=== PATIENT | female | born 1940 | race Two or more races ===

== ENCOUNTER 2024-03-15 08:33 | Emergency (ER) | payer MEDICAID, OTHER ==
[~2024-03-15] VITALS: Ht 157.5 cm; Wt 52.8 kg
[2024-03-15 09:08] VITALS: BP 112/75; PULSE 84; RESP 17; TEMP 98.1; O2SAT 98
--- NOTE | 2024-03-15 09:10 | ED.PDOC ---
Musculoskeletal HPI Comments 84Y F presents to ED for chief complaint rt foot/toe pain [id number]. Pt reports trauma to rt foot 2 weeks ago but states she has felt rt toe numbness for 6months. Pt states her toes feel stiff. Pt denies chest pain, SOB, abd pain, and n/v/d. No other symptoms reported. Chief Complaint: Lower Extremity Time Seen by MD: 08:50 Reviewed Notes: Nurses Notes, Medications, Allergies Allergies: Coded Allergies: No Known Drug Allergy (Verified Allergy, Unknown, 03/15/24) Information Source: Patient Mode of Arrival: Ambulatory Location: Right Extremity Location: Toe 3 Timing: Months Severity: Mild Able to Move Extremity: Yes Bear Weight: Limited Pain: Mild Mechanism: Unknown Circumstances: Unknown Symptoms: Pain Associated signs and symptoms: Other Past Medical History PAST MEDICAL HISTORY: Denies Surgical History: Denies all surgeries ATTENDANT HONOR BAR History: No Pertinent ATTENDANT HONOR BAR History Family History Family History: Unknown Social History Smoker: Non-Smoker Alcohol: Denies ETOH Use Drugs: Denies Drug Use Lives In: Home Constitutional: denies: chills, diaphoresis, fatigue, fever, malaise, sweats, weakness, others EENTM: denies: blurred vision, double vision, ear bleeding, ear discharge, ear drainage, ear pain, ear ringing, eye pain, eye redness, hearing loss, mouth pain, mouth swelling, nasal discharge, nose bleeding, nose congestion, nose pain, photophobia, tearing, throat pain, throat swelling, voice changes, others Respiratory: denies: cough, hemoptysis, orthopnea, SOB at rest, shortness of breath, SOB with excertion, stridor, wheezing, others Cardiovascular: denies: chest pain, dizzy spells, diaphoresis, Dyspnea on exertion, edema, irregular heart beat, left arm pain, lightheadedness, palpitations, PND, syncope, others Gastrointestinal: denies: abdomen distended, abdominal pain, blood streaked bowels, constipated, diarrhea, dysphagia, difficulty swallowing, hematemesis, melena, nausea, poor appetite, poor fluid intake, rectal bleeding, rectal pain, vomiting, others Genitourinary: denies: abnormal vagina bleeding, burning, dyspareunia, dysuria, flank pain, frequency, hematuria, incontinence, pain, , vagina discharge, urgency, others Neurological: reports: numbness (rt toes); denies: dizziness, fainting, headache, left sided numbness, left sided weakness, paresthesia, pre-existing deficit, right sided numbness, right sided weakness, seizure, speech problems, t ingling, tremors, weakness, others Musculoskeletal: reports: others (rt foot toe 3 pain); denies: back pain, gout, joint pain, joint swelling, muscle pain, muscle stiffness, neck pain Integumetry: denies: bruises, change in color, change in hair/nails, dryness, laceration, lesions, lumps, rash, wounds, others Allergic/Immunocompromised: denies: Difficulty Healing, Frequent Infections, Hives, Itching, others Hematologic/Lymphatic: denies: anemia, blood clots, easy bleeding, easy bruising, swollen glands, others Endocrine: denies: excessive hunger, excessive sweating, excessive thirst, excessive urination, flushing, intolerance to cold, intolerance to heat, unexplained weight gain, unexplained weight loss, others Psychiatric: denies: anxiety, bipolar disorder, depression, hopeless, panic disorder, schizophrenia, sleepless, suicidal, others All Other Systems: Reviewed and Negative Physical Exam General Appearance: No Apparent Distress, Normal HEENT: Normal ENT Inspection, Pharynx Normal, TMs Normal Neck: Full Range of Motion, Non-Tender, Normal, Normal Inspection Respiratory: Chest Non-Tender, Lungs Clear, No Accessory Muscle Use, No Respiratory Distress, Normal Breath Sounds Cardiovascular: No Edema, No JVD, No Murmur, No Gallop, Normal Peripheral Pulses, Regular Rate/Rhythm Breast Exam: Deferred Gastrointestinal: No Organomegaly, Non Tender, No Pulsatile Mass, Normal Bowel Sounds, Soft Genitalia: Deferred Pelvic: Deferred Rectal: Deferred Extremities: No calf tenderness, Normal capillary refill, Normal inspection, Normal range of motion, Non-tender, No pedal edema Musculoskeletal : Location: Right Extremity Location: Toe 3 Apperance: Deformity (mild deformity, old hematoma) Neurologic: Alert, youth teacher II-XII nml as Tested, No Motor Deficits, Normal Affect, Normal Mood, No Sensory Deficits Cerebellar Function: Normal Reflexes: Normal Skin: Dry, Normal Color, Warm Lymphatic: No Adenopathy Was a procedure done? Was a procedure done?: No Differential Diagnosis EXT Differential Diagnosis: Fracture, Sprain, Dislocation, DJD, Contusion, Strain X-Ray, Labs, Meds, VS Vital Signs Date Time Temp Pulse Resp B/P (MAP) Pulse Ox O2 Delivery O2 Flow Rate FiO2 03/15/24 09:08 84 17 98 Room Air 03/15/24 09:08 98.1 84 17 112/75 (87) 98 98.1 03/15/24 08:42 98.1 84 17 112/75 (87) 98 [place] [address] Ph: [phone] DIAGNOSTIC IMAGING Diagnostic Imaging Report : [id number] Signed PATIENT: JEISON QUIROS CACCT: [id number] UNIT: [id number] : 1940 LOC: ER ROOM / BED: / AGE / SEX: 84 / F ADM STATUS: REG ER SERVICE ORDERING PHYSICIAN: AVNI GRANGER MD PROCEDURE(s): RFOOT - R FOOT 3 VIEW XRAY REASON: right toe injury ORDER NUMBER(s): [id number], ACCESSION NUMBER(s): [id number] EXAM: XR Right Foot Complete, 3 or More Views CLINICAL INDICATION: right toe injury TECHNIQUE: Frontal, lateral and oblique views of the right foot. COMPARISON: None FINDINGS: BONES/JOINTS: Cortical irregularity of the distal 3rd phalanx could be a non displaced fracture. Correlation with point tenderness is recommended. No dislocation. SOFT TISSUES: Soft tissue swelling.. No radiopaque foreign body. OTHER FINDINGS: . . IMPRESSION: Cortical irregularity of the distal 3rd phalanx could be a non displaced fracture. Correlation with point tenderness is recommended. HS:Y ATED BY: ROBERTA FUCHS MD DICTATED DATE/TIME: 03/15/24908 SIGNED BY: ROBERTA FUCHS MD SIGNED DATE/TIME: 03/15/24908 CC: Time of 1ST Reevaluation: 09:20 Reevaluation 1ST: Unchanged Patient Education/Counseling: Diagnosis, Treatment, Prognosis, Need For Follow Up Family Education/Counseling: No Family Present Additional Information I reviewed the following notes from patient's past medical encounters: None The following tests were ordered, and results were reviewed by me: rt foot x-ray Additional Information was gathered from interviewing the following independent historians: None I reviewed and agreed with the following test results read by other providers: rt foot x-ray I discussed treatment and results with medical personnel. pt does not have tenderness or swelling of the right 3rd toe, but it does show deformity. there is no instability. she had kicked it 2 weeks ago. it was likely fractured, however, now there is no need to splint it. 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 Elec tronically submitted by Fatuma Whitt ([employer]). I personally scribed for AVNI GRANGER MD ([email or web address]) on 03/15/24 at 09:14. Electronically submitted by Fatuma Whitt ([employer]). AVNI GRANGER MD Mar 15, 2024 09:10
--- NOTE | 2024-03-15 09:11 | DVH ---
EXAM: XR Right Foot Complete, 3 or More Views CLINICAL INDICATION: right toe injury TECHNIQUE: Frontal, lateral and oblique views of the right foot. COMPARISON: None FINDINGS: BONES/JOINTS: Cortical irregularity of the distal 3rd phalanx could be a non displaced fracture. Cor relation with point tenderness is recommended. No dislocation. SOFT TISSUES: Soft tissue swelling.. No radiopaque foreign body. OTHER FINDINGS: . . IMPRESSION: Cortical irregularity of the distal 3rd phalanx could be a non displaced fracture. Correlation with p oint tenderness is recommended. HS:Y
== END 2024-03-15 10:38 | disposition home or self-care (01) ==
LOC: ER 08:33
DX: S92.524A Nondisplaced fracture of middle phalanx of right lesser toe(s), initial encounter for closed fracture (principal); G62.9 Polyneuropathy, unspecified; X58.XXXA Exposure to other specified factors, initial encounter; Y93.89 Activity, other specified; Y92.89 Other specified places as the place of occurrence of the external cause; Y99.8 Other external cause status
CPT/HCPCS: 73630

== ENCOUNTER 2024-11-15 12:20 | Inpatient (IN) | payer MEDICAID, OTHER ==
[~2024-11-15] VITALS: Ht 157.5 cm; Wt 53.2 kg
--- NOTE | 2024-11-15 12:39 | ED.PDOC ---
History of Present Illness HPI Comments 84 y/o Wallisian speaking F, with a Hx of DM and HTN, presents with c/c of dizziness. Patient reports on 3x day history of dizziness that is provoked whenever ambulating following initial onset. Compliant with medications. No endorsement of any recent ailments, sick contacts, travel, injuries, medication changes, or pertinent medical history or events. Denial of any nausea, vomiting, headache, fever, chills, or further associated symptoms. She feels like she is spinning. She lives by herself. Denies any dysuria. No recent cough runny nose sore throat. Chief Complaint: Dizziness Time Seen by MD: 13:30 Reviewed Notes: Nurses Notes, Allergies Allergies: Coded Allergies: No Known Drug Allergy (Verified Allergy, Unknown, 03/15/24) Information Source: Patient Mode of Arrival: Ambulatory Severity: Moderate Timing: Days Duration: Since onset Prehospital treatment: None Past Medical History PAST MEDICAL HISTORY: DM, HTN Surgical History: Denies all surgeries CARDIAC CATH TECH History: No Pertinent CARDIAC CATH TECH History Family History Family History: Unknown Social History Smoker: Non-Smoker Alcohol: Denies ETOH Use Drugs: Denies Drug Use Lives In: Home Constitutional: denies: chills, diaphoresis, fatigue, fever, malaise, sweats, weakness, others EENTM: denies: blurred vision, double vision, ear bleeding, ear discharge, ear drainage, ear pain, ear ringing, eye pain, eye redness, hearing loss, mouth pain, mouth swelling, nasal discharge, nose bleeding, nose congestion, nose pain, photophobia, tearing, throat pain, throat swelling, voice changes, others Respiratory: denies: cough, hemoptysis, orthopnea, SOB at rest, shortness of breath, SOB with excertion, stridor, wheezing, others Cardiovascular: reports: dizzy spells; denies: chest pain, diaphoresis, Dyspnea on exertion, edema, irregular heart beat, left arm pain, lightheadedness, palpitations, PND, syncope, others Gastrointestinal: denies: abdomen distended, abdominal pain, blood streaked bowels, constipated, diarrhea, dysphagia, difficulty swallowing, hematemesis, melena, nausea, poor appetite, poor fluid intake, rectal bleeding, rectal pain, vomiting, others Genitourinary: denies: abnormal vagina bleeding, burning, dyspareunia, dysuria, flank pain, frequency, hematuria, incontinence, pain, , vagina dischar ge, urgency, others Neurological: reports: dizziness; denies: fainting, headache, left sided numbness, left sided weakness, numbness, paresthesia, pre-existing deficit, right sided numbness, right sided weakness, seizure, speech problems, tingling, tremors, weakness, others Musculoskeletal: denies: back pain, gout, joint pain, joint swelling, muscle pain, muscle stiffness, neck pain, others Integumetry: denies: bruises, change in color, change in hair/nails, dryness, laceration, lesions, lumps, rash, wounds, others Allergic/Immunocompromised: denies: Difficulty Healing, Frequent Infections, Hives, Itching, others Hematologic/Lymphatic: denies: anemia, blood clots, easy bleeding, easy bruising, swollen glands, others Endocrine: denies: excessive hunger, excessive sweating, excessive thirst, excessive urination, flushing, intolerance to cold, intolerance to heat, unexplained weight gain, unexplained weight loss, others Psychiatric: denies: anxiety, bipolar disorder, depression, hopeless, panic disorder, schizophrenia, sleepless, suicidal, others All Other Systems: Reviewed and Negative Physical Exam General Appearance: No Apparent Distress, Normal HEENT: Normal ENT Inspection, Pharynx Normal, TMs Normal Neck: Full Range of Motion, Non-Tender, Normal, Normal Inspection Respiratory: Chest Non-Tender, Lungs Clear, No Accessory Muscle Use, No Respiratory Distress, Normal Breath Sounds Cardiovascular: No Edema, No JVD, No Murmur, No Gallop, Normal Peripheral Pulses, Regular Rate/Rhythm Breast Exam: Deferred Gastrointestinal: No Organomegaly, Non Tender, No Pulsatile Mass, Normal Bowel Sounds, Soft Genitalia: Deferred Pelvic: Deferred Rectal: Deferred Extremities: No calf tenderness, Normal capillary refill, Normal inspection, Normal range of motion, Non-tender, No pedal edema Musculoskeletal : Apperance: Normal Neurologic: Abnormal Gait, Alert, No Motor Deficits, Normal Affect, Normal Mood, No Sensory Deficits, Other (Patient unstable on her feet. Unable to use the restroom without assistance due to instability. 5/5 strength bilateral upper extremity. 4/5 strength bilateral lower extremity. Intact [id number] bilaterally. However patient unable to complete bilateral rapid alternating movements of the hand to the left hand. No facial droop no slurred speech.) Cerebellar Function: Normal Reflexes: Normal Skin: Dry, Normal Color, Warm Lymphatic: No Adenopathy Was a procedure done? Was a procedure done?: No EKG EKG : Comments Rate of 66 sinus rhythm mild inverted T-waves in V5 V6 Differential Dx Considerations may include: acute vertigo, CVA, TIA, electrolyte imbalance, dehydration, viral syndrome, among others X-Ray, Labs, Meds, VS Vital Signs Date Time Temp Pulse Resp B/P (MAP) Pulse Ox O2 Delivery O2 Flow Rate FiO2 11/15/24 12:30 66 11/15/24 12:21 97.6 73 18 165/72 97 97.6 Lab Test 11/15/24 17:15 11/15/24 16:30 11/15/24 15:10 11/15/24 14:12 Range/Units Troponin I High Sensitivity 29 30 33 </=34 ng/L Urine Color Colorless Yellow Urine Clarity Turbid H Clear Urine pH 7.5 5.0-9.0 Urine Specific [place] 1.009 1.001-1.035 Urine Protein Negative Negative Urine Ketones Negative Negative Urine Blood Trace H Negative /uL Urine Nitrite Negative Negative Urine Bilirubin Negative Negative Urine Urobilinogen Normal Negative mg/dL Urine Leukocyte Esterase 3+ Negative /uL Urine RBC 2 0 - 4 /hpf Urine Microscopic WBC 145 H 0-5 /HPF Urine Squamous Epithelial Cells Few <5 /hpf Urine Bacteria Few H None Seen /hpf Urine Glucose Normal Normal mg/dL White Blood Count 9.8 4.4-10.8 10^3/uL Red Blood Count 4.24 4.0-5.20 10^6/uL Hemoglobin 13.8 12.2-16.2 g/dL Hematocrit 39.0 36.0-46.0 % Mean Corpuscular Volume 91.9 80.0-100.0 fL Mean Corpuscular Hemoglobin 32.5 H 28.0-32.0 pg Mean Corpuscular Hemoglobin Concent 35.4 32.0-36.0 g/dL Red Cell Distribution Width 13.1 11.8-14.3 % Platelet Count 337 140-450 10^3/uL Mean Platelet Volume 6.6 L 6.9-10.8 fL Neutrophils (%) (Auto) 77.0 37.0-80.0 % Lymphocytes (%) (Auto) 15.4 10.0-50.0 % Monocytes (%) (Auto) 6.9 0.0-12.0 % Eosinophils (%) (Auto) 0.4 0.0-7.0 % Basophils (%) (Auto) 0.3 0.0-2.0 % Neutrophils # (Auto) 7.6 1.6-8.6 10 ^3/uL Lymphocytes # (Auto) 1.5 0.4-5.4 10 ^3/uL Monocytes # (Auto) 0.7 0-1.3 10 ^3/uL Eosinophils # (Auto) 0 0-0.8 10 ^3/uL Basophils # (Auto) 0 0-0.2 10 ^3/uL Nucleated Red Blood Cells 0.1 % Sodium Level 134 L 136-145 mmol/L Potassium Level 3.7 3.5-5.1 mmol/L Chloride Level 96 L 98-107 mmol/L Carbon Dioxide Level 27 20-31 mmol/L Anion Gap 11 5-15 Blood Urea Nitrogen 10 9-23 mg/dL Creatinine 0.73 0.550-1.02 mg/dL Glomerular Filtration Rate Calc 81 >90 mL/min BUN/Creatinine Ratio 13.7 10.0-20.0 Serum Glucose 125 H 74-106 mg/dL Calcium Level 10.0 8.7-10.4 mg/dL [place] [address] Ph: [phone] DIAGNOSTIC IMAGING Diagnostic Imaging Report : [id number] Signed PATIENT: JEISON QUIROS ACCT: [id number] UNIT: [id number] : 1940 LOC: ER ROOM / BED: / AGE / SEX: 84 / F ADM STATUS: REG ER SERVICE 1350 ORDERING PHYSICIAN: BRIDGET PEDERSON MD PROCEDURE(s): HWOCT - HEAD WITHOUT CONTRAST REASON: Dizziness ORDER NUMBER(s): [id number], ACCESSION NUMBER(s): [id number] EXAM: CT HEAD WITHOUT CONTRAST INDICATION: Dizziness TECHNIQUE: CT of the head without intravenous contrast. Radiation Dose Information: CT Dose: CTDI volume is 53.09 mGy. Dose-length product is 755.91 mGy*cm The dose indicators for CT are the volume Computed Tomography (CT) Dose Index (C TDIvol) and the Dose Length Product (DLP), and are measured in units of mGy and mGy-cm, respectively. These indicators are not patient dose, but values generated from the CT scanner acquisition factors. The report includes radiation exposure data for exposures received during this examination. COMPARISON: BRAIN HEAD WO CONTRAST on DOS: 09/20/21, HEAD WITHOUT CONTRAST on DOS: 09/20/21 FINDINGS: There is no evidence of acute intracranial hemorrhage, extra-axial collection, mass effect, midline shift, herniation or hydrocephalus. Punctate low-density areas left external capsule suggesting old lacunar infarct. The ventricles, sulci and cisterns are age appropriate. The waller-white differentiation is intact. Patchy periventricular and subcortical white matter hypoattenuation is nonspecific but may be related to small vessel ischemic disease. The visualized paranasal sinuses and mastoid air cells are clear. The surrounding soft tissues and osseous structures are unremarkable. IMPRESSION: 1. No acute intracranial abnormality. 2. No prior studies for comparison ATED BY: EMMANUEL ARGUELLES Jr., DO DICTATED DATE/TIME: 11/15/24 143 SIGNED BY: EMMANUEL ARGUELLES Jr., SIGNED DATE/TIME: 11/15/24 143 CC: [place] [address] Ph: [phone] DIAGNOSTIC IMAGING Diagnostic Imaging Report : [id number] Signed PATIENT: JEISON QUIROS ACCT: [id number] UNIT: [id number] : 1940 LOC: ER ROOM / BED: / AGE / SEX: 84 / F ADM STATUS: REG ER SERVICE 1350 ORDERING PHYSICIAN: BRIDGET PEDERSON MD PROCEDURE(s): CXR2 - CHEST TWO VIEWS ROUTINE REASON: Dizziness ORDER NUMBER(s): [id number], ACCESSION NUMBER(s): [id number] CHEST TWO VIEWS ROUTINE CLINICAL HISTORY: Dizziness COMPARISON: None TECHNIQUE: Frontal and lateral view of the chest was obtained FINDINGS: Lines and Tubes: None Lungs: No focal consolidation. Pleura: No effusion. No pneumothorax. Cardiomediastinal contours: Unremarkable Bones: No acute osseous abnormality. Dextroscoliosis thoracic spine IMPRESSION: 1. No acute cardiopulmonary disease. ATED BY: EMMANUEL ARGUELLES Jr., DO DICTATED DATE/TIME: 11/15/241420 SIGNED BY: EMMANUEL ARGUELLES Jr., SIGNED DATE/TIME: 11/15/241420 CC: 84-year-old female presents here with dizziness x3 days. On my evaluation patient is unsteady on her feet. Unable to use the restroom by herself as she is at fall risk. She has no focal deficits on my examination except for she does have difficulty performing rapid alternating movements of the hand to the left hand. I am concerned about possible Celebellar roke. However she is out of the time window for tPA. CT scan of the brain has been done which is unremarkable. Chest x-ray is unremarkable. Blood work including a CBC BMP, troponin is negative. Chest x-ray with no acute pathology. EKG however does demonstrate some inverted T-waves. At this time patient is agreeable to admission. She may require MRI for further evaluation. Time of 1ST Reevaluation: 14:00 Reevaluation 1ST: Unchanged Patient Education/Counseling: Treatment, Other (need for admission ) Family Education/Counseling: No Family Present SEPSIS Sepsis Screen Date sepsis recognized/suspect: Nov 15, 2024 Time Sepsis recognized/suspect: 2 Recent Procedure: No On Antibiotic Therapy: No Respiratory Rate >20: No Heart Rate >90: No Temp<36 C (96.8 F) or >38.3 C: No SBP <90 or MAP <65 mmHG: No New Acute Mental Status Change: No Is the patient on CPAP, BIPAP,: No Physician Orders Electrocardigram (11/15/24 12:23) Chest Two Views Routine (11/15/24 13:50) Head Without Contrast (11/15/24 13:50) Sodium Chloride 0.9% (11/15/24 17:00) Vital Signs Date Time Temp Pulse Resp B/P (MAP) Pulse Ox O2 Delivery O2 Flow Rate FiO2 11/15/24 12:30 66 11/15/24 12:21 97.6 73 18 165/72 97 97.6 Laboratory Tests Test 11/15/24 14:12 White Blood Count 9.8 10^3/uL (4.4-10.8) Departure 1 Departure Time of Disposition: 17:59 Impression: Primary Impression: Dizziness Additional Impressions: UTI (urinary tract infection) Qualified Codes: N30.00 - Acute cystitis without hematuria EKG abnormalities Disposition: 09 ADMITTED INPATIENT Condition: Fair Critical Care Note Critical Care Time?: Yes (35 min-critical care time only) Critical care comment: Concern for possible cerebellar stroke. Time spent evaluating the patient ,speaking to admitting team, speaking to nursing staff Stability Stability form required: No Heart Score Heart Score: Heart Score Response (Comments) Value History N/A 0 EKG N/A 0 Age N/A 0 Risk Factors N/A 0 Troponin N/A 0 Total 0 I personally scribed for BRIDGET PEDERSON MD ([email or web address]) on 11/15/24 at 12:39. Electronically submitted by Flory Cain ([email or web address]). I personally scribed for BRIDGET PEDERSON MD ([email or web address]) on 11/15/24 at 15:16. Electronically submitted by Reinier Leavitt ([email or web address]). I personally scribed for BRIDGET PEDERSON MD ([email or web address]) on 11/15/24 at 15:59. Electronically submitted by Reinier Leavitt ([email or web address]). I personally scribed for BRIDGET PEDERSON MD ([email or web address]) on 11/15/24 at 17:51. Electronically submitted by Reinier Leavitt ([email or web address]). I personally scribed for BRIDGET PEDERSON MD ([email or web address]) on 11/15/24 at 17:51. Electronically submitted by Reinier Leavitt ([email or web address]). BRIDGET PEDERSON MD Nov 15, 2024 12:39
--- NOTE | 2024-11-15 14:23 | DVH ---
XY CHEST TWO VIEWS ROUTINE CLINICAL HISTORY: Dizziness COMPARISON: None TECHNIQUE: Frontal and lateral view of the chest was obtained FINDINGS: Lines and Tubes: None Lungs: No focal consolidation. Pleura: No effusion. No pneumothorax. Cardiomediastinal contours: Unremarkable Bones: No acute osseous abnormality. Dextroscoliosis thoracic spine IMPRESSION: 1. No acute cardiopulmonary disease.
[2024-11-15 14:24] LABS: Hematocrit 39.0 % (36.0-46.0); Hemoglobin 13.8 g/dL (12.2-16.2); Mean Corpuscular Hemoglobin 32.5 pg (28.0-32.0); Mean Corpuscular Volume 91.9 fL (80.0-100.0); Nucleated Red Blood Cells % 0.1 %
--- NOTE | 2024-11-15 14:33 | DVH ---
EXAM: CT HEAD WITHOUT CONTRAST INDICATION: Dizziness TECHNIQUE: CT of the head without intravenous contrast. Radiation Dose Information: CT Dose: CTDI volume is 53.09 mGy. Dose-length product is 755.91 mGy*cm The dose indicators for CT are the volume Computed Tomography (CT) Dose Index (CTDIvol) and the Dose Length Product (DLP), and are measured in units of mGy and mGy-cm, respectively. These indicators are not patient dose, but values generated from the CT scanner acquisition factors. The report includes radiation exposure data for exposures received during this examination. COMPARISON: BRAIN HEAD WO CONTRAST on DOS: 09/20/21, HEAD WITHOUT CONTRAST on DOS: 09/20/21 FINDINGS: There is no evidence of acute intracranial hemorrhage, extra-axial collection, mass effect, midline s hift, herniation or hydrocephalus. Punctate low-density areas left external capsule suggesting old lacunar infarct. The ventricles, sulci and cisterns are age appropriate. The waller-white differentiation is intact. Patchy periventricular and subcortical white matter hypoattenuation is nonspecific but may be related to small vessel ischemic disease. The visualized paranasal sinuses and mastoid air cells are clear. The surrounding soft tissues and osseous structures are unremarkable. IMPRESSION: 1. No acute intracranial abnormality. 2. No prior studies for comparison
[2024-11-15 14:39] LABS: Potassium 3.7 mmol/L (3.5-5.1)
[2024-11-15 14:40] LABS: Anion Gap 11 (5-15); Carbon Dioxide 27 mmol/L (20-31)
[2024-11-15 14:41] LABS: Calcium 10.0 mg/dL (8.7-10.4)
[2024-11-15 14:45] LABS: BUN/Creatinine Ratio 13.7 (10.0-20.0); Blood Urea Nitrogen 10 mg/dL (9-23)
[2024-11-15 14:46] LABS: Chloride 96 mmol/L (98-107); Glucose 125 mg/dL (74-106); Sodium 134 mmol/L (136-145)
[2024-11-15 17:08] LABS: Urine Protein, UAD Negative (Negative)
[2024-11-15] MEDS: SODIUM CHLORIDE 0.9% 500 ML IV ONE ×2 (18:09→22:45)
[2024-11-15] MEDS: MECLIZINE HCL 25 MG TAB PO ONE (18:12)
[2024-11-15] MEDS: SODIUM CHLORIDE 0.9% 1,000 ML IV SCH (22:45)
[2024-11-15 22:59] LABS: Triglycerides 84.0 mg/dL (< 150)
[2024-11-15 23:00] LABS: Magnesium 2.2 mg/dL (1.6-2.6)
[2024-11-15 23:01] LABS: Cholesterol 185.0 mg/dL (< 200)
[2024-11-15 23:02] LABS: HDL Cholesterol 66.0 mg/dL (40-59)
[2024-11-15 23:12] LABS: Amphetamine Screen, Urine Neg (NEGATIVE); Barbiturate Scree,Urine Neg (NEGATIVE); Benzodiazephine Screen, Urine Neg (NEGATIVE); Cannabinoid Screen, Urine Neg (NEGATIVE); Cocaine Screen, Urine Neg (NEGATIVE); Opiate Scree,Urine Neg (NEGATIVE); Phencyclidine Screen, Urine Neg (NEGATIVE)
[2024-11-15 23:42] LABS: INR 1.06 (0.9-1.15); Partial Thromboplastin Time 27.3 SEC (24.5-34.5); Prothrombin Time 11.2 sec (9.3-11.8)
[2024-11-16] VITALS (7 sets, daily range): BP systolic 127–167; BP diastolic 69–84; PULSE 56–81; RESP 16–18; TEMP 96.1–98.4; O2SAT 94–99
[2024-11-16 00:08] LABS: Alanine Aminotransferase 17.0 U/L (7-40); Alkaline Phosphatase 60.0 U/L (46-116); Bilirubin, Direct 0.2 mg/dL (<0.3); Bilirubin, Total 0.9 mg/dL (0.2-1.0)
[2024-11-16 00:10] LABS: Albumin 5.4 g/dL (3.2-4.8); Total Protein 8.2 g/dL (5.7-8.2)
[2024-11-16] MEDS ORDERED: ACETAMINOPHEN 325 MG TAB PO PRN (00:15)
[2024-11-16] MEDS ORDERED: ONDANSETRON HCL 4 MG/2 ML VIAL IV PRN (00:15)
[2024-11-16] MEDS ORDERED: MORPHINE SULFATE INJ 2 MG/ml SYRG IV PRN (00:15)
--- NOTE | 2024-11-16 00:18 | DVHHPRES ---
History of Present Illness Resident Creating Document: ELIZABETH BRENNAN RESIDENT History of Present Illness La Nena Garcia is a 84-year-old female patient who presents to the ED due to dizziness which is triggered by standing and she was feeling more confused for the past two days, associated with polyuria. Patient denies suprapubic pain, dyspnea, chest pain and other associated symptoms. Past medical history: Hypertension, depression, urinary incontinence, hypothyroidism, chronic back pain status post multiple epidural, arthritis, vitamin-D deficiency Surgical history: Multiple epidural injections, hysterectomy, hammertoe Family history: Noncontributory Social history: Lives in [place] alone (next of kin is son who lives in [facility]). Denies current tobacco, alcohol and other drug abuse Allergies: Denies Home medication: Losartan/hydrochlorothiazide 100 mg/25 mg p.o. daily, mirtazapine 15 mg p.o. daily, tramadol 50 mg p.o. b.i.d. p.r.n., sertraline 25 mg p.o. daily, vitamin-D, oxybutynin 5 mg p.o. daily, nifedipine 60 mg p.o. daily, levothyroxine 75 ug p.o. daily Patient seen and examined in wheelchair. Currently denies any new complaint, patient was left in the ER by a friend, could not drive due to dizziness. Past Medical History Per HPI Past Surgical History Per HPI Family History Per HPI Past Social History Per HPI Review of Systems Review of Systems Per HPI Allergies: Coded Allergies: No Known Drug Allergy (Verified Allergy, Unknown, 03/15/24) Medications Current Medications Medications Dose Ordered Sig/Ibrahima Route Start Time Stop Time Status Last Admin Dose Admin Ceftriaxone Sodium 50 ml @ 100 mls/hr Q24H IV 11/16/24 23:00 Sodium Chloride 1,000 ml @ 60 mls/hr [id number] IV 11/15/24 22:45 Exam Vital Signs Vital Signs Date Time Temp Pulse Resp B/P (MAP) Pulse Ox O2 Delivery O2 Flow Rate FiO2 11/15/24 20:17 97.5 60 16 160/74 (102) 95 97.5 11/15/24 17:58 Room Air Exam Patient lying in bed, in no acute distress General: Lucid, afebrile, mucosae are moist Cardiovascular: Normal S1 and S2. No murmurs, gallops or rubs Respiratory: Normal ventilation mechanics. Clear lung sounds on auscultation Abdomen: Soft, nontender, no organomegaly, normal bowel sounds MSK/skin: Mobilizes 4 limbs. Skin is dry and warm : Positive costovertebral tenderness on left side Neurological: Oriented in 3 spheres. No motor no sensitive deficits. Pupils are isocoric and reactive Labs/Xrays Labs Test 11/15/24 23:03 11/15/24 17:15 11/15/24 16:30 11/15/24 14:12 Range/Units Prothrombin Time 11.2 9.3-11.8 sec Prothrombin Time INR 1.06 0.9-1.15 Activated Partial Thromboplast Time 27.3 24.5-34.5 SEC Lactic Acid Level 1.3 0.4-2.0 mmol/L Troponin I High Sensitivity 29 </=34 ng/L Urine Color Colorless Yellow Urine Clarity Turbid H Clear Urine pH 7.5 5.0-9.0 Urine Specific [place] 1.009 1.001-1.035 Urine Protein Negative Negative Urine Ketones Negative Negative Urine Blood Trace H Negative /uL Urine Nitrite Negative Negative Urine Bilirubin Negative Negative Urine Urobilinogen Normal Negative mg/dL Urine Leukocyte Esterase 3+ Negative /uL Urine RBC 2 0 - 4 /hpf Urine Microscopic WBC 145 H 0-5 /HPF Urine Squamous Epithelial Cells Few <5 /hpf Urine Bacteria Few H None Seen /hpf Urine Glucose Normal Normal mg/dL Urine Opiates Screen Neg NEGATIVE Urine Fentanyl Screen Neg NEGATIVE Urine Barbiturates Screen Neg NEGATIVE Urine Phencyclidine Screen Neg NEGATIVE Urine Amphetamines Screen Neg NEGATIVE Urine Benzodiazepines Screen Neg NEGATIVE Urine Cocaine Screen Neg NEGATIVE Urine Cannabinoids Screen Neg NEGATIVE White Blood Count 9.8 4.4-10.8 10^3/uL Red Blood Count 4.24 4.0-5.20 10^6/uL Hemoglobin 13.8 12.2-16.2 g/dL Hematocrit 39.0 36.0-46.0 % Mean Corpuscular Volume 91.9 80.0-100.0 fL Mean Corpuscular Hemoglobin 32.5 H 28.0-32.0 pg Mean Corpuscular Hemoglobin Concent 35.4 32.0-36.0 g/dL Red Cell Distribution Width 13.1 11.8-14.3 % Platelet Count 337 140-450 10^3/uL Mean Platelet Volume 6.6 L 6.9-10.8 fL Neutrophils (%) (Auto) 77.0 37.0-80.0 % Lymphocytes (%) (Auto) 15.4 10.0-50.0 % Monocytes (%) (Auto) 6.9 0.0-12.0 % Eosinophils (%) (Auto) 0.4 0.0-7.0 % Basophils (%) (Auto) 0.3 0.0-2.0 % Neutrophils # (Auto) 7.6 1.6-8.6 10 ^3/uL Lymphocytes # (Auto) 1.5 0.4-5.4 10 ^3/uL Monocytes # (Auto) 0.7 0-1.3 10 ^3/uL Eosinophils # (Auto) 0 0-0.8 10 ^3/uL Basophils # (Auto) 0 0-0.2 10 ^3/uL Nucleated Red Blood Cells 0.1 % Sodium Level 134 L 136-145 mmol/L Potassium Level 3.7 3.5-5.1 mmol/L Chloride Level 96 L 98-107 mmol/L Carbon Dioxide Level 27 20-31 mmol/L Anion Gap 11 5-15 Blood Urea Nitrogen 10 9-23 mg/dL Creatinine 0.73 0.550-1.02 mg/dL Glomerular Filtration Rate Calc 81 >90 mL/min BUN/Creatinine Ratio 13.7 10.0-20.0 Serum Glucose 125 H 74-106 mg/dL Hemoglobin A1c 5.6 <5.7 % A1C Calcium Level 10.0 8.7-10.4 mg/dL Phosphorus Level 2.8 2.4-5.1 mg/dL Magnesium Level 2.2 1.6-2.6 mg/dL Total Bilirubin 0.9 0.2-1.0 mg/dL Direct Bilirubin 0.2 <0.3 mg/dL Aspartate Amino Transferase (AST) 23 13-40 U/L Alanine Aminotransferase (ALT) 17 7-40 U/L Alkaline Phosphatase 60 46-116 U/L Total Protein 8.2 5.7-8.2 g/dL Albumin 5.4 H 3.2-4.8 g/dL Triglycerides Level 84 < 150 mg/dL Cholesterol Level 185 < 200 mg/dL LDL Cholesterol 106 H < 100 mg/dL HDL Cholesterol 66 H 40-59 mg/dL Thyroid Stimulating Hormone (TSH) 0.88 0.55-4.78 uIU/mL SEPSIS Sepsis Screen Date sepsis recognized/suspect: Nov 15, 2024 Time Sepsis recognized/suspect: 1800 Recent Procedure: No On Antibiotic Therapy: No Respiratory Rate >20: No Heart Rate >90: No Temp<36 C (96.8 F) or >38.3 C: No SBP <90 or MAP <65 mmHG: No New Acute Mental Status Change: No Is the patient on CPAP, BIPAP,: No Physician Orders Ceftriaxone 1gm/50ml (Rocephin) (11/16/24 23:00) Blood Culture (11/15/24 22:39) Urine Bacterial Culture (11/15/24 22:39) Echo 2d Mode Cardiac Dop (11/15/24 22:39) Sodium Chloride 0.9% (11/15/24 22:45) Vitamin D, 25-Hydroxy (11/15/24 22:39) Vitamin B12 (11/15/24 22:39) Carotid Duplx W Color Dop (11/16/24 10:00) Admit (11/16/24 00:12) Code Status (11/16/24 00:12) Vital Signs .PER UNIT PROTOCOL (11/16/24 00:12) Review Orders With Adm. (11/16/24 00:12) [facility]Diabetes (11/16/24 Breakfast) Acetaminophen Tablet (Tylenol Tablet) (11/16/24 00:15) Notify Md Of Changes From Base (11/16/24 00:12) Advance Directive (11/16/24 00:12) Basic Metabolic Panel (11/16/24 04:00) Complete Blood Count (11/16/24 04:00) Patient Condition (11/16/24 00:12) Allergies (11/16/24 00:12) Ondansetron Hcl (Zofran) (11/16/24 00:15) Morphine 2mg Iv Q4hprn (11/16/24 00:15) Lovenox 40mg (11/16/24 10:00) Oxygen By Nasal Cannula (11/16/24 00:12) Stat Ekg For Chest Pain (11/16/24 00:12) Notify Md Of Changes From Base (11/16/24 00:12) Quality Assurance Lab Technician For 24 Hours (11/16/24 00:12) Emergency Dysrhythmia Protocol (11/16/24 00:12) Rhythm Strips Once Every Shift (11/16/24 00:12) Losartan Tablet (Cozaar Tablet) (11/16/24 10:00) Oxybutynin Chloride Tablet (Ditropan Tab (11/16/24 10:00) Sertraline Hcl (Zoloft) (11/16/24 10:00) Mirtazapine Tablet (Remeron Tablet) (11/16/24 22:00) Mirtazapine Tablet (Remeron Tablet) (11/16/24 00:15) Levothyroxine Tablet (Synthroid Tablet) (11/16/24 06:00) Orthostatic Vital Signs (11/16/24 ) Orthostatic Vital Signs (11/16/24 00:12) Vital Signs Date Time Temp Pulse Resp B/P (MAP) Pulse Ox O2 Delivery O2 Flow Rate FiO2 11/15/24 20:17 97.5 60 16 160/74 (102) 95 97.5 11/15/24 17:58 65 20 96 Room Air 11/15/24 17:58 98.2 65 20 161/61 (94) 96 98.2 Laboratory Tests Test 11/15/24 14:12 11/15/24 23:03 White Blood Count 9.8 10^3/uL (4.4-10.8) Lactic Acid Level 1.3 mmol/L (0.4-2.0) Medications Medications Dose Ordered Sig/Ibrahima Route Start Time Stop Time Status Last Admin Dose Admin Ceftriaxone Sodium 50 ml @ 100 mls/hr ONCE ONCE IV 11/15/24 22:45 11/15/24 23:14 DC 11/15/24 22:45 100 MLS/HR Meclizine HCl 25 mg ONCE ONCE PO 11/15/24 17:00 11/15/24 17:01 DC 11/15/24 18:12 25 MG Sodium Chloride 500 ml @ 500 mls/hr Q1H ONCE IV 11/15/24 17:00 11/15/24 17:59 DC 11/15/24 18:09 500 MLS/HR Sodium Chloride 500 ml @ 500 mls/hr Q1H ONCE IV 11/15/24 22:45 11/15/24 23:44 DC 11/15/24 22:45 500 MLS/HR Assessment/Plan Assessment/Plan Presyncope probably secondary to pyelonephritis Possible Pyelonephritis Urinalysis was positive for esterase (plus three and multiple white blood cells) , positive costovertebral tenderness in left side. Ordered head CT which showed no acute intracranial pathology Ordered orthostatic vital signs, echocardiogram and carotid Doppler Ordered kaba cultures (blood in urine). Currently under empiric IV antibiotic (ceftriaxone) Hypothyroidism Continue levothyroxine 75 mcg p.o. daily TSH within normal limits (0.88) Dyslipidemia newly diagnosed Hypertension Hyponatremia and hypochloremia probably secondary to diuretics LDL 106 Gave advice on healthy lifestyle habits Continue losartan nifedipine. Discontinued hydrochlorothiazide due to mild h yponatremia and hypochloremia. Depression Continue home medication (mirtazapine and sertraline) Chronic back pain Arthritis Vitamin-D deficiency Follow up with pain management doctor Continue vitamin-D supplementation Discontinue tramadol. She is currently on morphine IV p.r.n. Urinary incontinence Continue oxybutynin Goals of care discussed with patient for over 18 minutes: Full code status Discussed plan with Dr. Bennett, patient and nurses: We will admit patient for empiric IV antibiotic, ordering workup for presyncope (pending echocardiogram, orthostatic vital signs and Doppler of carotids). Patient has poor prognosis Plan discussed with: Patient, Other (Nurses) My Orders Orders - ELIZABETH BRENNAN RESIDENT Procedure Category Date Status Time Ceftriaxone 1gm/50ml PHA 11/16/24 In Process (Rocephin) 23:00 Blood Culture LOIS 11/15/24 In Process 22:39 Urine Bacterial LOIS 11/15/24 In Process Culture 22:39 Echo 2d Mode Cardiac US 11/15/24 Logged DOP 22:39 Sodium Chloride 0.9% PHA 11/15/24 In Process 22:45 Vitamin D, 25-Hydroxy LAB 11/15/24 In Process 22:39 Vitamin B12 LAB 11/15/24 In Process 22:39 Carotid Duplx W Color US 11/16/24 Logged DOP 10:00 Admit ADMIT 11/16/24 Transmitted 00:12 Code Status CODE 11/16/24 Transmitted 00:12 Vital Signs THIAGO 11/16/24 Transmitted 00:12 Review Orders With THIAGO 11/16/24 Transmitted Adm. 00:12 Consistent DIET 11/16/24 Transmitted Carb(Ccho)Diabetes Breakfast Acetaminophen Tablet PHA 11/16/24 Transmitted (Tylenol Tablet) 00:15 Notify Md Of Changes [facility] 11/16/24 Transmitted From Base 00:12 Advance Directive THIAGO 11/16/24 Transmitted 00:12 Basic Metabolic Panel LAB 11/16/24 Transmitted 04:00 Complete Blood Count LAB 11/16/24 Transmitted 04:00 Patient Condition ORDERS 11/16/24 Transmitted 00:12 Allergies [facility] 11/16/24 Transmitted 00:12 Ondansetron Hcl PHA 11/16/24 Transmitted (Zofran) 00:15 Morphine 2mg Iv Q4hprn PHA 11/16/24 Transmitted 00:15 Lovenox 40mg PHA 11/16/24 Transmitted 10:00 Oxygen By Nasal RT 11/16/24 Transmitted Cannula 00:12 Stat Ekg For Chest [facility] 11/16/24 Transmitted Pain 00:12 Notify Md Of Changes [facility] 11/16/24 Transmitted From Base 00:12 Quality Assurance Lab Technician For [facility] 11/16/24 Transmitted 24 Hours 00:12 Emergency Dysrhythmia [facility] 11/16/24 Transmitted Protocol 00:12 Rhythm Strips Once [facility] 11/16/24 Transmitted Every Shift 00:12 Losartan Tablet PHA 11/16/24 Transmitted (Cozaar Tablet) 10:00 Oxybutynin Chloride PHA 11/16/24 Transmitted Tablet (Ditropan Tab 10:00 Sertraline Hcl PHA 11/16/24 Transmitted (Zoloft) 10:00 Mirtazapine Tablet PHA 11/16/24 Transmitted (Remeron Tablet) 22:00 Mirtazapine Tablet PHA 11/16/24 Transmitted (Remeron Tablet) 00:[address] [facility] 11/16/24 Transmitted (Synthroid Tablet) 06:00 Orthostatic Vital ED NURSING 11/16/24 Transmitted Signs Orthostatic Vital ORDERS 11/16/24 Transmitted Signs 00:12 Date of Service: Nov 16, 2024 Billing Provider: ROGE BENNETT MD Common Visit Codes: [id number] INP/OBS CARE (HIGH) Secondary Visit Codes: [id number] CARE PLAN 30 MINUTES ELIZABETH BRENNAN RESIDENT Nov 16, 2024 00:18
[2024-11-16] MEDS: MIRTAZAPINE 30 MG TAB PO ONE (00:44)
[2024-11-16 04:21] LABS: Hematocrit 37.1 % (36.0-46.0); Hemoglobin 12.9 g/dL (12.2-16.2); Mean Corpuscular Hemoglobin 31.8 pg (28.0-32.0); Mean Corpuscular Volume 91.6 fL (80.0-100.0); Nucleated Red Blood Cells % 0.0 %
[2024-11-16 04:29] LABS: Chloride 101 mmol/L (98-107); Sodium 139 mmol/L (136-145)
[2024-11-16 04:30] LABS: Anion Gap 11 (5-15); Calcium 9.2 mg/dL (8.7-10.4); Carbon Dioxide 27 mmol/L (20-31)
[2024-11-16 04:34] LABS: Potassium 3.2 mmol/L (3.5-5.1)
[2024-11-16 04:35] LABS: BUN/Creatinine Ratio 12.7 (10.0-20.0); Glucose 100 mg/dL (74-106)
[2024-11-16 04:37] LABS: Blood Urea Nitrogen 9 mg/dL (9-23)
[2024-11-16] MEDS: LEVOTHYROXINE SODIUM 25 MCG TAB PO SCH (06:00)
--- NOTE | 2024-11-16 06:36 | ECG ---
[facility] Test Date: 2024-11-15 Test Time: 12:32:14 Pat Name: JEISON QUIROS Department: ED Room: [facility] Gender: F Facing Machine Operator: gp : 1940 Requested By: BRIDGET PEDERSON Order Number: [id number] Reading MD: Chinedu Edward Measurements Intervals [place] Rate: 66 P: 85 HI: 206 QRS: 84 QRSD: 86 T: 67 QT: 438 QTc: 459 Interpretive Statements Sinus rhythm Borderline right axis deviation Borderline T wave abnormalities Baseline wander in lead(s) V4 Electronically Signed On 11-17-2024 18:51:22 PDT by Chinedu Edward Please click the below link to view image of tracing.
[2024-11-16] MEDS: LOSARTAN POTASSIUM 50 MG TAB PO SCH (10:42)
[2024-11-16] MEDS: SERTRALINE HCL 50 MG TAB PO SCH (10:43)
[2024-11-16] MEDS: OXYBUTYNIN CHL 5 MG TAB PO SCH (10:43)
[2024-11-16] MEDS: ENOXAPARIN SOD 40 MG/0.4 ML SYRINGE SC SCH (10:44)
--- NOTE | 2024-11-16 11:06 | DVH ---
CLINICAL HISTORY: Presyncope TECHNIQUE: Martinez-scale, Color and Duplex Doppler imaging of the bilateral carotid systems was [place] elias WID: COMPARISON: CAROTID DUPLX W COLOR DOP on DOS: 09/20/21 Findings: Right Carotid system: Mild atherosclerotic plaque within the distal common carotid artery and proxima l internal carotid artery. Left Carotid system: Moderate atherosclerotic plaque at the carotid bulb extending into the proximal internal carotid artery. The right and left common carotid and external carotid arteries are patent. There is antegrade flow i n both vertebral arteries and external carotid arteries. The following flow velocities were obtained (cm/sec). Right Carotid System: ICA PSV: 110 ICA/CCA Ratio: 1 Left Carotid System: ICA PSV: 80 ICA/CCA Ratio: 1.4 IMPRESSION: No evidence of hemodynamically significant stenosis. Mild mkfn-[id number]-nipe-right carotid artery plaque. Estimation of carotid stenosis is based on velocity parameters that correlate the residual internal c arotid diameter with that of the more distal vessel in accordance with the [place] Symptomatic Carotid Endarterectomy Trial (NASCET).
[2024-11-16] MEDS ORDERED: SERT25TA84 PO (11:57)
[2024-11-16] MEDS ORDERED: LEVO25TA6 PO (11:57)
[2024-11-16] MEDS ORDERED: MIRT-93 PO (11:57)
[2024-11-16] MEDS ORDERED: TRAM50TA2 PO (11:57)
[2024-11-16] MEDS ORDERED: NIFE1TAB30 PO (11:57)
[2024-11-16] MEDS ORDERED: CHOL20007 PO (11:57)
[2024-11-16] MEDS ORDERED: ROSU10TA16 PO (11:57)
[2024-11-16] MEDS ORDERED: TRAZ-227 PO (11:57)
[2024-11-16] MEDS ORDERED: LOSA100T25 PO (11:57)
--- NOTE | 2024-11-16 16:23 | DVHSR ---
APPROVED REPORT EXAM: LIMITED Two-dimensional and M-mode echocardiogram. Blood Pressure: 150/69 mmHg INDICATION Presyncope RISK FACTORS Height: 5' 2", Weight: 116 DIMENSIONS LVDd3.7 (3.8-5.7cm)LA (2D)3.4 (1.9-4.0cm)Aortic Root3.3 (2.0-3.7cm) LVDs2.6 (2.5-4.0cm)LA (MM) (1.9-4.0cm)Aortic Cusp Exc1.9 (1.5-2.0cm) EF (%) 60.0 (55-70%)Rt. Atrium3.8 (1.9-4.0cm)Asc. Aorta cm IVSd0.8 (0.7-1.1cm)RV (D) (1.8-2.4cm) PWd0.7 (0.7-1.1cm) Mitral Valve MitralMitral Stenosis E wave0.60m/sMV Mean GR.mmHg A wave0.90m/sMV Peak GR.mmHg E/A ratio0.72D MVAcm2 Aortic Valve Aortic ValveAortic Stenosis V10.80m/Rian Mean GR.4mmHg V21.30m/Rian Peak GR.8mmHg LVOT Diameter2.1 (1.8-2.4cm)Doppler AVA2.13cm2 Other Information Quality : Technically LimitedRhythm : Technically limited study due to body habitus. Conclusion LV EF IS 65% AND IS NORMAL NORMAL VALVES NORMAL RV FUNCTION NO EFFUSION
--- NOTE | 2024-11-16 17:30 | DVHPN2 ---
Subjective denies any pain/ Changes from previous H/P or p: No Changes Objective Vitals Vital Signs Date Time Temp Pulse Resp B/P (MAP) Pulse Ox O2 Delivery O2 Flow Rate FiO2 11/16/24 17:19 98.2 60 16 135/69 (91) 99 98.2 11/16/24 08:00 Room Air* 0 21 Intake/Output Intake and Output 11/16/24 07:00 Intake Total 500 ml Balance 500 ml Intake IV Total 500 ml General Appearance: Alert, Oriented X3, Cooperative, No acute distress Lungs: Clear to auscultation, Normal air movement Cardiovascular: Regular rate, Normal S1, Normal S2, No murmurs Abdomen: Normal bowel sounds, Soft, No tenderness, No hepatospenomegaly Neuro: Normal gait, Normal speech, Strength at 5/5 X4 ext, Normal tone, S ensation intact, Cranial nerves 3-12 NL Psych/Mental Status: Mental status NL, Mood NL Medications Current Medications Medications Dose Ordered Sig/Ibrahima Route Start Time Stop Time Status Last Admin Dose Admin Ceftriaxone Sodium 50 ml @ 100 mls/hr Q24H IV 11/16/24 23:00 Sodium Chloride 1,000 ml @ 60 mls/hr [id number] IV 11/15/24 22:45 11/15/24 23:45 60 MLS/HR Acetaminophen 650 mg Q6HP PRN PO 11/16/24 00:15 Ondansetron HCl 4 mg Q4HP PRN IV 11/16/24 00:15 Morphine Sulfate 2 mg Q4HPRN PRN IV 11/16/24 00:15 Enoxaparin Sodium 40 mg DAILY SC 11/16/24 10:00 11/16/24 10:44 40 MG Losartan Potassium 50 mg DAILY PO 11/16/24 10:00 11/16/24 10:42 50 MG Oxybutynin Chloride 5 mg Q12HR PO 11/16/24 10:00 11/16/24 10:43 5 MG Sertraline HCl 25 mg DAILY PO 11/16/24 10:00 11/16/24 10:43 25 MG Mirtazapine 15 mg HS PO 11/16/24 22:00 Levothyroxine Sodium 75 mcg QAM@0600 PO 11/16/24 06:00 11/16/24 06:00 75 MCG Ergocalciferol 50,000 unit Q7D PO 11/20/24 01:45 Nifedipine 60 mg DAILY PO 11/17/24 10:00 Laboratory Results Laboratory Tests 11/16/24 03:54 Chemistry Test 11/16/24 03:54 Calcium Level 9.2 mg/dL (8.7-10.4) Coagulation Test 11/15/24 23:03 Prothrombin Time 11.2 sec (9.3-11.8) Prothrombin Time INR 1.06 (0.9-1.15) Activated Partial Thromboplast Time 27.3 SEC (24.5-34.5) Urinalysis Test 11/15/24 16:30 Urine Color Colorless (Yellow) Urine Clarity Turbid (Clear) H Urine pH 7.5 (5.0-9.0) Urine Specific [place] 1.009 (1.001-1.035) Urine Protein Negative (Negative) Urine Ketones Negative (Negative) Urine Blood Trace /uL (Negative) H Urine Nitrite Negative (Negative) Urine Bilirubin Negative (Negative) Urine Urobilinogen Normal mg/dL (Negative) Urine Leukocyte Esterase 3+ /uL (Negative) Urine RBC 2 /hpf (0 - 4) Urine Microscopic WBC 145 /HPF (0-5) H Urine Squamous Epithelial Cells Few /hpf (<5) Urine Bacteria Few /hpf (None Seen) H Urine Glucose Normal mg/dL (Normal) Assessment/Plan Assessment/Plan dizziness- no arrthmias/echo is normal/? due to uti vs dehydration- treat uti-treat/dc anticholinergics htn Plan discussed with: Patient My Orders Orders - SHAMA POWER MD Procedure Category Date Status Time Nifedipine Er PHA 11/17/24 In Process (Procardia Xl 10:00 Date of Service: Nov 16, 2024 Billing Provider: SHAMA POWER MD Common Visit Codes: [id number] INP/OBS CARE(MOD) SHAMA POWER MD Nov 16, 2024 17:29
[2024-11-16] MEDS: MIRTAZAPINE 30 MG TAB PO SCH (22:00)
[2024-11-17] VITALS (8 sets, daily range): BP systolic 137–167; BP diastolic 69–81; PULSE 51–70; RESP 17–18; TEMP 96.2–97.9; O2SAT 96–99
[2024-11-17] MEDS: POTASSIUM EFFERVESENT TAB 25 MEQ PO ONE (15:43)
--- NOTE | 2024-11-17 16:08 | DVHPN2 ---
Subjective Irish-speaking; staff helped with translation; no more dizziness; did not share any complaints Reviewed: Care Plan, H&P, Labs, Medications, Previous Orders, Radiology Changes from previous H/P or p: Changes Objective Vitals Vital Signs Date Time Temp Pulse Resp B/P (MAP) Pulse Ox O2 Delivery O2 Flow Rate FiO2 11/17/24 13:00 97.9 62 17 150/74 (99) 97 97.9 11/17/24 08:00 Room Air* 0 21 Intake/Output Intake and Output 11/17/24 07:00 Intake Total 780 ml Balance 780 ml Intake Oral 600 ml IV Total 180 ml # Voids 4 General Appearance: Alert, Oriented X3, Cooperative, No acute distress HEENT: Atraumatic Lungs: Clear to auscultation, Normal air movement Cardiovascular: Regular rate, Normal S1, Normal S2, No murmurs Abdomen: Normal bowel sounds, Soft, No tenderness Back: Other (No CVA tenderness) Extremities: No edema Neuro: Normal speech, Cranial nerves 3-12 NL Psych/Mental Status: Mental status NL, Mood NL Medications Current Medications Medications Dose Ordered Sig/Ibrahima Route Start Time Stop Time Status Last Admin Dose Admin Ceftriaxone Sodium 50 ml @ 100 mls/hr Q24H IV 11/16/24 23:00 11/16/24 22:10 100 MLS/HR Acetaminophen 650 mg Q6HP PRN PO 11/16/24 00:15 Losartan Potassium 50 mg DAILY PO 11/16/24 10:00 11/17/24 09:32 50 MG Sertraline HCl 25 mg DAILY PO 11/16/24 10:00 11/17/24 09:32 25 MG Mirtazapine 15 mg HS PO 11/16/24 22:00 Levothyroxine Sodium 75 mcg QAM@0600 PO 11/16/24 06:00 11/17/24 06:09 75 MCG Ergocalciferol 50,000 unit Q7D PO 11/20/24 01:45 Nifedipine 60 mg DAILY PO 11/17/24 10:00 11/17/24 09:32 60 MG Laboratory Results Laboratory Tests 11/16/24 03:54 Urinalysis Test 11/15/24 16:30 Urine Color Colorless (Yellow) Urine Clarity Turbid (Clear) H Urine pH 7.5 (5.0-9.0) Urine Specific [place] 1.009 (1.001-1.035) Urine Protein Negative (Negative) Urine Ketones Negative (Negative) Urine Blood Trace /uL (Negative) H Urine Nitrite Negative (Negative) Urine Bilirubin Negative (Negative) Urine Urobilinogen Normal mg/dL (Negative) Urine Leukocyte Esterase 3+ /uL (Negative) Urine RBC 2 /hpf (0 - 4) Urine Microscopic WBC 145 /HPF (0-5) H Urine Squamous Epithelial Cells Few /hpf (<5) Urine Bacteria Few /hpf (None Seen) H Urine Glucose Normal mg/dL (Normal) Microbiology Microbiology Date/Time Source Procedure Growth Status 11/15/24 23:03 Blood Blood Culture - Preliminary NO GROWTH AFTER 24 HOURS OF INCUBATION. Resulted 11/15/24 16:30 Voided Urine Urine Culture - Preliminary Resulted Labs and/or images reviewed: Labs reviewed by me, Image(s) reviewed by me Assessment/Plan Assessment/Plan Covering: Presyncope/Dizziness Suspect pyelonephritis as initially the patient presented with left CVA tenderness; no more CVA tenderness Hypothyroidism Newly diagnosed dyslipidemia Hypertensive kidney disease with suspected CKD Electrolyte abnormalities in the setting of diuretic use Chronic depression; no suicide ideation/plan Chronic back and arthritic pain Vitamin-D deficiency Urinary incontinence No indication for DVT/GI prophylaxis Reviewed the available lab work including urinalysis that showed suspected infection with bacteria, increased white blood cell count, and positive leukoesterase Continue IV antibiotic Preliminary urine culture with mixed karlie and recommendation to repeat so ordered repeat urine culture Reviewed echocardiogram, and head CT that showed no acute abnormality Carotid duplex ultrasound showed no significant stenosis but mild ndwy-rtyqvlk-crcg-right carotid artery plaque No orthostatic changes in vital signs Continue pain management as indicated Continue antihypertensive medication/s and adjust according to blood pressure monitoring To continue holding diuretics Ordered repeat urine culture Counseled on adopting healthy lifestyle with diet and exercise in order to lower cholesterol Continue antidepressant medications Continue levothyroxine Continue vitamin-D supplement To continue holding oxybutynin on in the setting of dizziness/presyncope Avoid nephrotoxic agent Ordered morning labs including magnesium level due to hypokalemia on November 16, 2024 labs Continue monitoring Goals of care discussed with the patient for 20 minutes; full code Late Entry. This medical document was created using an electronic medical record system with computerized dictation system. Although this document has been carefully reviewed, there might still be some phonetic and typographical errors. These areas are purely typographical due to imperfections of the software programs, and do not reflect any compromise in the patient's medical care. Plan discussed with: Patient, Other (Nurse) Date of Service: Nov 17, 2024 Billing Provider: FLORENTIN BAUER MD Common Visit Codes: [id number] INP/OBS CARE(HIGH) Secondary Visit Codes: [id number] CARE PLAN 30 MINUTES (20 minutes) FLORENTIN BAUER MD Nov 17, 2024 16:08
[2024-11-18] VITALS (7 sets, daily range): BP systolic 128–196; BP diastolic 70–90; PULSE 60–97; RESP 14–18; TEMP 97.2–98.2; O2SAT 97–99
[2024-11-18 07:29] LABS: Calcium 8.9 mg/dL (8.7-10.4); Chloride 100 mmol/L (98-107); Potassium 3.6 mmol/L (3.5-5.1); Sodium 137 mmol/L (136-145)
[2024-11-18 07:30] LABS: Anion Gap 8 (5-15); Carbon Dioxide 29 mmol/L (20-31)
[2024-11-18 07:35] LABS: BUN/Creatinine Ratio 20.7 (10.0-20.0); Blood Urea Nitrogen 12 mg/dL (9-23); Glucose 86 mg/dL (74-106)
[2024-11-18 07:36] LABS: Magnesium 1.9 mg/dL (1.6-2.6)
[2024-11-18 07:37] LABS: Hematocrit 31.0 % (36.0-46.0); Hemoglobin 11.0 g/dL (12.2-16.2); Mean Corpuscular Hemoglobin 32.6 pg (28.0-32.0); Mean Corpuscular Volume 91.6 fL (80.0-100.0); Nucleated Red Blood Cells % 0.0 %
--- NOTE | 2024-11-18 16:17 | ECG ---
[facility] Test Date: 2024-11-16 Test Time: 02:00:55 Pat Name: JEISON QUIROS Department: Room: 0279 A Gender: F Ammonium Nitrate Neutralizer: KAYLI : 1940 Requested By: BRIDGET PEDERSON Order Number: [id number] Reading MD: Chinedu Edward Measurements Intervals [place] Rate: 57 P: 69 IN: 235 QRS: 73 QRSD: 105 T: 64 QT: 497 QTc: 484 Interpretive Statements Sinus rhythm Prolonged IN interval Borderline low voltage, extremity leads Electronically Signed On 11-18-2024 16:33:48 PDT by Chinedu Edward Please click the below link to view image of tracing.
--- NOTE | 2024-11-18 17:12 | DVHPN2 ---
Subjective Anxious to go home. However blood pressure is still elevated above 150-160 range. No chest pain shortness for breath or headaches. Reviewed: Care Plan, H&P, Labs, Medications, Previous Orders, Radiology Changes from previous H/P or p: No Changes Objective Vitals Vital Signs Date Time Temp Pulse Resp B/P (MAP) Pulse Ox O2 Delivery O2 Flow Rate FiO2 11/18/24 16:47 97.6 92 16 140/75 (96) 97.6 11/18/24 13:00 98 11/18/24 08:00 Room Air* 0 21 Intake/Output Intake and Output 11/18/24 07:00 Intake Total 1740 ml Balance 1740 ml Intake Oral 1260 ml IV Total 480 ml # Voids 9 # Bowel Movements 2 General Appearance: Alert, Oriented X3, Cooperative, No acute distress HEENT: Atraumatic Lungs: Clear to auscultation, Normal air movement Cardiovascular: Regular rate, Normal S1, Normal S2, No murmurs Abdomen: Normal bowel sounds, Soft, No tenderness Back: Other (No CVA tenderness) Extremities: No edema Neuro: Normal speech, Cranial nerves 3-12 NL Psych/Mental Status: Mental status NL, Mood NL Medications Current Medications Medications Dose Ordered Sig/Ibrahima Route Start Time Stop Time Status Last Admin Dose Admin Ceftriaxone Sodium 50 ml @ 100 mls/hr Q24H IV 11/16/24 23:00 11/17/24 22:35 100 MLS/HR Acetaminophen 650 mg Q6HP PRN PO 11/16/24 00:15 Losartan Potassium 50 mg DAILY PO 11/16/24 10:00 11/18/24 08:26 50 MG Sertraline HCl 25 mg DAILY PO 11/16/24 10:00 11/18/24 08:27 25 MG Mirtazapine 15 mg HS PO 11/16/24 22:00 Levothyroxine Sodium 75 mcg QAM@0600 PO 11/16/24 06:00 11/18/24 06:19 75 MCG Ergocalciferol 50,000 unit Q7D PO 11/20/24 01:45 Nifedipine 60 mg DAILY PO 11/17/24 10:00 11/18/24 08:25 60 MG Laboratory Results Laboratory Tests 11/18/24 06:04 Chemistry Test 11/18/24 06:04 Calcium Level 8.9 mg/dL (8.7-10.4) Magnesium Level 1.9 mg/dL (1.6-2.6) Urinalysis Test 11/15/24 16:30 Urine Color Colorless (Yellow) Urine Clarity Turbid (Clear) H Urine pH 7.5 (5.0-9.0) Urine Specific [place] 1.009 (1.001-1.035) Urine Protein Negative (Negative) Urine Ketones Negative (Negative) Urine Blood Trace /uL (Negative) H Urine Nitrite Negative (Negative) Urine Bilirubin Negative (Negative) Urine Urobilinogen Normal mg/dL (Negative) Urine Leukocyte Esterase 3+ /uL (Negative) Urine RBC 2 /hpf (0 - 4) Urine Microscopic WBC 145 /HPF (0-5) H Urine Squamous Epithelial Cells Few /hpf (<5) Urine Bacteria Few /hpf (None Seen) H Urine Glucose Normal mg/dL (Normal) Microbiology Microbiology Date/Time Source Procedure Growth Status 11/15/24 23:03 Blood Blood Culture - Preliminary NO GROWTH AFTER 48 HOURS OF INCUBATION. Resulted 11/15/24 16:30 Voided Urine Urine Culture - Final Complete Assessment/Plan Assessment/Plan Suspect pyelonephritis as initially the patient presented with left CVA tenderness; no more CVA tenderness Hypothyroidism Newly diagnosed dyslipidemia Hypertensive kidney disease with suspected CKD Electrolyte abnormalities in the setting of diuretic use Chronic depression; no suicide ideation/plan Chronic back and arthritic pain Vitamin-D deficiency Urinary incontinence No indication for DVT/GI prophylaxis Reviewed the available lab work including urinalysis that showed suspected infection with bacteria, increased white blood cell count, and positive leukoesterase Continue IV antibiotic Preliminary urine culture with mixed karlie and recommendation to repeat so ordered repeat urine culture Reviewed echocardiogram, and head CT that showed no acute abnormality Carotid duplex ultrasound showed no significant stenosis but mild gbco-kxobcec-iagk-right carotid artery plaque No orthostatic changes in vital signs Continue pain management as indicated Continue antihypertensive medication/s and adjust according to blood pressure monitoring To continue holding diuretics Ordered repeat urine culture Counseled on adopting healthy lifestyle with diet and exercise in order to lower cholesterol Continue antidepressant medications Continue levothyroxine Continue vitamin-D supplement To continue holding oxybutynin on in the setting of dizziness/presyncope Avoid nephrotoxic agent Keep her overnight to control the blood pressure. I will increase losartan to 50 b.i.d.. Otherwise continue rest of supportive care and treatment. Consider discharge home in the morning. Discussed with the patient and nurse at bedside. Plan discussed with: Patient Date of Service: Nov 18, 2024 Billing Provider: PAULO BHATTI MD Common Visit Codes: [id number] INP/OBS CARE(MOD) PAULO BHATTI MD Nov 18, 2024 17:12
[2024-11-18] MEDS: LOSARTAN POTASSIUM 50 MG TAB PO SCH (18:22)
[2024-11-19 01:00] VITALS: BP 130/66; PULSE 61; RESP 18; TEMP 97.9; O2SAT 97
[2024-11-19 05:00] VITALS: BP 120/74; PULSE 58; RESP 18; TEMP 98.2; O2SAT 97
[2024-11-19 09:00] VITALS: BP 156/82; PULSE 74; RESP 18; TEMP 97.4; O2SAT 97
[2024-11-19 13:00] VITALS: BP_SYST 161; BP_SYST 163; BP_SYST 169; BP_DIAS 82; BP_DIAS 87; BP_DIAS 88; PULSE 70; PULSE 80; RESP 18; TEMP 98.6; O2SAT 97
--- NOTE | 2024-11-19 13:41 | DVHDS2 ---
Discharge Summary Date of Admission Nov 16, 2024 at 00:12 Date of Discharge: Nov 19, 2024 Labs/Diagnostic Data: Laboratory Results Test 11/18/24 06:04 11/15/24 23:03 11/15/24 17:15 11/15/24 16:30 White Blood Count 5.9 10^3/uL (4.4-10.8) Red Blood Count 3.38 10^6/uL (4.0-5.20) Hemoglobin 11.0 g/dL (12.2-16.2) Hematocrit 31.0 % (36.0-46.0) Mean Corpuscular Volume 91.6 fL (80.0-100.0) Mean Corpuscular Hemoglobin 32.6 pg (28.0-32.0) Mean Corpuscular Hemoglobin Concent 35.6 g/dL (32.0-36.0) Red Cell Distribution Width 12.9 % (11.8-14.3) Platelet Count 272 10^3/uL (140-450) Mean Platelet Volume 6.8 fL (6.9-10.8) Neutrophils (%) (Auto) 56.2 % (37.0-80.0) Lymphocytes (%) (Auto) 29.1 % (10.0-50.0) Monocytes (%) (Auto) 11.1 % (0.0-12.0) Eosinophils (%) (Auto) 3.1 % (0.0-7.0) Basophils (%) (Auto) 0.5 % (0.0-2.0) Neutrophils # (Auto) 3.3 10 ^3/uL (1.6-8.6) Lymphocytes # (Auto) 1.7 10 ^3/uL (0.4-5.4) Monocytes # (Auto) 0.7 10 ^3/uL (0-1.3) Eosinophils # (Auto) 0.2 10 ^3/uL (0-0.8) Basophils # (Auto) 0 10 ^3/uL (0-0.2) Nucleated Red Blood Cells 0.0 % Sodium Level 137 mmol/L (136-145) Potassium Level 3.6 mmol/L (3.5-5.1) Chloride Level 100 mmol/L (98-107) Carbon Dioxide Level 29 mmol/L (20-31) Anion Gap 8 (5-15) Blood Urea Nitrogen 12 mg/dL (9-23) Creatinine 0.58 mg/dL (0.550-1.02) Glomerular Filtration Rate Calc 89 mL/min (>90) BUN/Creatinine Ratio 20.7 (10.0-20.0) Serum Glucose 86 mg/dL (74-106) Calcium Level 8.9 mg/dL (8.7-10.4) Magnesium Level 1.9 mg/dL (1.6-2.6) Prothrombin Time 11.2 sec (9.3-11.8) Prothrombin Time INR 1.06 (0.9-1.15) Activated Partial Thromboplast Time 27.3 SEC (24.5-34.5) Lactic Acid Level 1.3 mmol/L (0.4-2.0) Vitamin B12 Level 239 pg/mL (211-911) Vitamin D 25-Hydroxy 47.4 ng/mL (30.0-100) Troponin I High Sensitivity 29 ng/L (</=34) Urine Color Colorless (Yellow) Urine Clarity Turbid (Clear) Urine pH 7.5 (5.0-9.0) Urine Specific [place] 1.009 (1.001-1.035) Urine Protein Negative (Negative) Urine Ketones Negative (Negative) Urine Blood Trace /uL (Negative) Urine Nitrite Negative (Negative) Urine Bilirubin Negative (Negative) Urine Urobilinogen Normal mg/dL (Negative) Urine Leukocyte Esterase 3+ /uL (Negative) Urine RBC 2 /hpf (0 - 4) Urine Microscopic WBC 145 /HPF (0-5) Urine Squamous Epithelial Cells Few /hpf (<5) Urine Bacteria Few /hpf (None Seen) Urine Glucose Normal mg/dL (Normal) Urine Opiates Screen Neg (NEGATIVE) Urine Fentanyl Screen Neg (NEGATIVE) Urine Barbiturates Screen Neg (NEGATIVE) Urine Phencyclidine Screen Neg (NEGATIVE) Urine Amphetamines Screen Neg (NEGATIVE) Urine Benzodiazepines Screen Neg (NEGATIVE) Urine Cocaine Screen Neg (NEGATIVE) Urine Cannabinoids Screen Neg (NEGATIVE) Test 11/15/24 14:12 Hemoglobin A1c 5.6 % A1C (<5.7) Phosphorus Level 2.8 mg/dL (2.4-5.1) Total Bilirubin 0.9 mg/dL (0.2-1.0) Direct Bilirubin 0.2 mg/dL (<0.3) Aspartate Amino Transferase (AST) 23 U/L (13-40) Alanine Aminotransferase (ALT) 17 U/L (7-40) Alkaline Phosphatase 60 U/L (46-116) Total Protein 8.2 g/dL (5.7-8.2) Albumin 5.4 g/dL (3.2-4.8) Triglycerides Level 84 mg/dL (< 150) Cholesterol Level 185 mg/dL (< 200) LDL Cholesterol 106 mg/dL (< 100) HDL Cholesterol 66 mg/dL (40-59) Thyroid Stimulating Hormone (TSH) 0.88 uIU/mL (0.55-4.78) Other Laboratory Tests 11/18/24 06:04 Brief Hx & Hospital Course: La Nena Garcia is a 84-year-old female patient who presents to the ED due to dizziness which is triggered by standing and she was feeling more confused for the past two days, associated with polyuria. Patient denies suprapubic pain, dyspnea, chest pain and other associated symptoms. She is admitted and received empiric IV antibiotics for suspected UTI. Her urine culture showed mixed organisms possible contamination. Patient's white cell count remained normal. She has been verbally. However she did have elevated blood pressure therefore her blood pressure medications from home has been increased. Patient counseled and educated regarding checking blood pressure at home and to follow up with the primary care physician to adjust her BP medications. While in the hospital otherwise patient is clinically feeling better back to baseline normal status to send requesting to be discharged home. I have talked with the patient regarding her hospital diagnosis, treatment she received, discharge medications, discharge instructions and follow-up plan of care. She has verbalized understanding of these and agree with the care plan as outlined. Operations or Procedures APPROVED REPORT EXAM: LIMITED Two-dimensional and M-mode echocardiogram. Blood Pressure: 150/69 mmHg INDICATION Presyncope RISK FACTORS Height: 5' 2", Weight: 116 DIMENSIONS LVDd 3.7 (3.8-5.7cm) LA (2D) 3.4 (1.9-4.0cm) Aortic Root 3.3 (2.0- 3.7cm) LVDs 2.6 (2.5-4.0cm) LA (MM) (1.9-4.0cm) Aortic Cusp Exc 1.9 (1.5- 2.0cm) EF (%) 60.0 (55-70%) Rt. Atrium 3.8 (1.9-4.0cm) Asc. Aorta cm IVSd 0.8 (0.7-1.1cm) RV (D) (1.8-2.4cm) PWd 0.7 (0.7-1.1cm) Mitral Valve Mitral Mitral Stenosis E wave 0.60m/s MV Mean GR. mmHg A wave 0.90m/s MV Peak GR. mmHg E/A ratio 0.7 2D MVA cm2 Aortic Valve Aortic Valve Aortic Stenosis V1 0.80m/s AO Mean GR. 4mmHg V2 1.30m/s AO Peak GR. 8mmHg LVOT Diameter 2.1 (1.8-2.4cm) Doppler NANI 2.13cm2 Other Information Quality : Technically Limited Rhythm : Technically limited study due to body habitus. Conclusion LV EF IS 65% AND IS NORMAL NORMAL VALVES NORMAL RV FUNCTION NO EFFUSION SIGNED BY: TOMMY SANTAMARIA MD SIGNED DATE/TIME: 11/16/24 5573 Condition at Discharge: Stable Final Diagnosis/Problems List Suspect pyelonephritis as initially the patient presented with left CVA tenderness; no more CVA tenderness Hypothyroidism Newly diagnosed dyslipidemia Hypertensive kidney disease with suspected CKD Electrolyte abnormalities in the setting of diuretic use Chronic depression; no suicide ideation/plan Chronic back and arthritic pain Vitamin-D deficiency Urinary incontinence Discharge Disposition: Home Discharge Instruct/Medications Diet: Consistent carbohydrate, Cardiac 2g Na,low cholest Activity: No Restrictions, As Tolerated Follow Up/Referral: PCP 2 weeks Medications: Home medications. Scheduled Cholecalciferol (Vitamin D3), 1 TAB PO DAILY, (Reported) Levothyroxine Sodium (Levothyroxine Sodium), 75 MCG PO QAM, (Reported) Losartan Potassium & Hydrochlo (Hyzaar), 1 TAB PO DAILY, (Reported) Mirtazapine (Remeron), 1 TAB PO QPM, (Reported) Nifedipine (Nifedipine Er), 1 TAB PO DAILY, (Reported) Rosuvastatin Calcium (Crestor), 1 TAB PO HS, (Reported) Sertraline Hcl (Zoloft), 1 TAB PO DAILY, (Reported) Tramadol Hcl (Tramadol Hcl), 50 MG PO [id number], (Reported) Trazodone Hcl (Trazodone Hcl), 50 MG PO HS, (Reported) Scheduled PRN Clonidine Hydrochloride (Clonidine Hcl), 0.1 MG PO [id number] PRN Discharge Statement: "Patient was advised to return to the ER or call 911 if any headaches, dizziness, shortness of breath, chest pain, abdominal pain, bleeding, fevers, or worsening of medical condition. Patient was counseled about treatment plan, medications, possible side effects, patientverbalized understanding. All questions were answered to the best of my ability. This discharge took greater then 30 minutes in planning, reviewing documentation, counseling the patient, and discussing with other team members." ASSESSMENT ASSESSMENT Assessment Suspect pyelonephritis as initially the patient presented with left CVA tenderness; no more CVA tenderness Hypothyroidism Newly diagnosed dyslipidemia Hypertensive kidney disease with suspected CKD Electrolyte abnormalities in the setting of diuretic use Chronic depression; no suicide ideation/plan Chronic back and arthritic pain Vitamin-D deficiency Urinary incontinence Date of Service: Nov 19, 2024 Billing Provider: PAULO BHATTI MD Common Visit Codes: 04189-[id number] DISCH DAY <30MIN PAULO BHATTI MD Nov 19, 2024 13:41
[2024-11-19] MEDS ORDERED: CLON0.1T PO (14:24)
[2024-11-19 15:43] VITALS: BP 154/65
[2024-11-20] MEDS ORDERED: ERGOCALCIFEROL 50,000 UNIT(1.25MG) CAP PO SCH (01:45)
== END 2024-11-19 16:59 | disposition home or self-care (01) | DRG 690 ==
LOC: ER 12:20 → OVERFLOW 11-16 00:12 → WEST WING 11-16 18:42
PROVIDERS: ADMIT Hospitalist; ATTEND Hospitalist
DX: N12 Tubulo-interstitial nephritis, not specified as acute or chronic (principal); E87.1 Hypo-osmolality and hyponatremia; E03.9 Hypothyroidism, unspecified; F32.A Depression, unspecified; E78.5 Hyperlipidemia, unspecified; E55.9 Vitamin D deficiency, unspecified; G89.29 Other chronic pain; N18.9 Chronic kidney disease, unspecified; I12.9 Hypertensive chronic kidney disease with stage 1 through stage 4 chronic kidney disease, or unspecified chronic kidney disease; E11.22 Type 2 diabetes mellitus with diabetic chronic kidney disease; I65.21 Occlusion and stenosis of right carotid artery; E87.6 Hypokalemia; E87.8 Other disorders of electrolyte and fluid balance, not elsewhere classified
CPT/HCPCS: 36415; 70450; 71046; 80048; 80061; 80076; 80307; 81001; 82306; 82607; 83036; 83605; 83735; 84100; 84443; 84484; 85025; 85610; 85730; 87040; 87086; 93005; 93306; 93886; 96361; 96365; 99291; G0378

== ENCOUNTER 2024-11-22 15:51 | Inpatient (IN) | payer OTHER ==
[~2024-11-22] VITALS: Ht 165.1 cm; Wt 52.1 kg
[~2024-11-22 15:51] MED LIST: CHOL20007 PO; CLON0.1T PO; LEVO25TA6 PO; LEVO75TA6 PO; LOSA100T25 PO; MIRT-93 PO; NIFE1TAB30 PO; OXYB5TAB14 PO; ROSU10TA16 PO; SERT25TA84 PO; TRAM50TA2 PO; TRAZ-227 PO
[2024-11-22 16:48] LABS: Hematocrit 37.1 % (36.0-46.0); Hemoglobin 12.6 g/dL (12.2-16.2); Mean Corpuscular Hemoglobin 31.6 pg (28.0-32.0); Mean Corpuscular Volume 92.7 fL (80.0-100.0); Nucleated Red Blood Cells % 0.0 %
--- NOTE | 2024-11-22 16:57 | DVH ---
Indication: abd pain/weak Technique: CT axial images of the abdomen and pelvis are obtained without contrast. Coronal and sagit anamaria reformats were obtained. Radiation Dose Information: CTDI volume is 5.2 mGy. Dose-length product is 246 mGy*cm Comparison: None FINDINGS: There is limited interpretation of the abdomen and pelvis without administration of intravenous contr ast. Lung bases demonstrate no pleural effusion. Adrenal glands, spleen, pancreas and liver unremarkable in shape. No CT evidence for cholelithiasis. No hydronephrosis. Nonobstructing right renal calculus measuring 4 mm. Small hiatal hernia. Stomach partially distended. Moderate to large volume stool in the colon especially within the cecum.m normal appendix. Fecal lik e contents in the mid to distal small bowel with dilatation up to approximately 3 cm. Abdominal aortic atherosclerotic disease. Bladder partially distended. No free pelvic fluid. No ingui nal lymphadenopathy. L1 compression deformity with 90% loss height, 7 mm retropulsion. Moderate thoracolumbar degenerative disc disease. Advanced lumbar facet hypertrophic changes at L4-5 and L5-S1. Thoracolumbar levocurva ture. IMPRESSION: Limited evaluation without contrast. Moderate to large volume stool within the colon especially in the cecum /ascending colon. There are F ecal like contents within the mid to distal small bowel, likely representing sequela of ileus/ consti pation. Atherosclerotic disease. Nonobstructing right renal calculus. Other findings as described.
[2024-11-22 17:04] LABS: Alanine Aminotransferase 22 U/L (7-40); Albumin 4.8 g/dL (3.2-4.8); Alkaline Phosphatase 52 U/L (46-116); Anion Gap 9 (5-15); BUN/Creatinine Ratio 23.7 (10.0-20.0); Blood Urea Nitrogen 18 mg/dL (9-23); Calcium 9.3 mg/dL (8.7-10.4); Carbon Dioxide 28 mmol/L (20-31); Lipase 39 U/L (12-53); Total Protein 7.3 g/dL (5.7-8.2)
[2024-11-22 17:05] LABS: Bilirubin, Total 0.6 mg/dL (0.2-1.0); Chloride 97 mmol/L (98-107); Glucose 108 mg/dL (74-106); Potassium 3.4 mmol/L (3.5-5.1); Sodium 134 mmol/L (136-145)
--- NOTE | 2024-11-22 17:12 | ED.PDOC ---
HPI (NEURO) HPI Comments HPI: Jose 84 y.o female presents to the ED for a chief complaint of dizziness associated with weakness that started yesterday. Patient notes that dizziness worsens when standing up/movement and slightly improves at rest. Patient was seen on 11/16/24 at this ED for same complaint, was admitted and told to f/u in 2 weeks at this facility. She states during discharge she was not sent home with medication and states she initially felt better then. Per son who brought patient in today, states she has has increased stress at home with becomes very anxious. Patient denies hx of anxiety nor is on medication for it (or dizziness). No hx of vertigo reported either. She denies any syncopal episodes, nausea, vomiting, head injuries, SOB or chest pain, Initial Vitals BP: 140/68 HR: 64 RR: 18 O2: 95% RA Temp: 97.2 F Past Medical History: thyroid and HTN Past Surgical History: Denies Social History: Denies ETOH, smoking, and drug use. Allergies: Denies HPI: Poor Historian. REVIEW OF SYSTEMS: CONSTITUTIONAL: Denies acute: fever, diaphoresis, chills, HEAD: Denies acute: headache, photophobia Eyes: Denies acute: Double vision, vision loss, eye pain, eye discharge. EARS: Denies acute: tinnitus, hearing loss, ear discharge, ear pain, THROAT: Denies acute: sore throat, swelling, difficulty swallowing , pain with swallowing, change in voice. NECK: Denies acute: neck pain, neck swelling, stiff neck. HEART: Denies acute : chest pain, palpitations, LUNGS: Denies acute: SOB, wheezing, cough, hemoptysis ABDOMEN: Denies acute: abdominal pain, Nausea, Vomiting, diarrhea, melena , hematemesis, hematochezia SKIN: Denies acute: rash, redness, lesions, itchiness. EXTREMITIES: Denies acute: calf pain, numbness, tingling, weakness, denies pain in extremity. Denies acute: Low back pain. Neuro: Denies acute: focal neurological deficit, motor or sensory focal neurological deficit, tremors, seizure like activity, confusion, change in mental status, loss of bowel or bladder function, cauda equina like symptoms. : Denies acute: dysuria, hematuria, flank pain, increase in urinary frequency. PSYCH: Denies acute: hallucination, suicidal ideation, homicidal ideation. FEMALE: Denies acute: abnormal vaginal bleeding, foul odor, unusual discharge. PHYSICAL EXAM: General: ---no-----acute distress, awake and alert. Head: normocephalic, atraumatic. Neck: supple, trachea is midline, no swelling. Throat: Normal phonation. Eyes:, no erythema, no purulent discharge, no proptosis, no icterus. Heart: regular rate, regular rhythm, no significant murmur appreciated. Lungs: no apparent respiratory distress, Able to speak in full sentences. No wheezing, no rhonchi, no crackles. No stridors Clear to auscultation bilaterally. Abdomen: non tender to palpation, non distended, soft, no guarding, no rebound, + bowel sounds. Neuro: Awake, Alert, oriented to name, self, situation, follows commands GCS=15. Speech is normal. Skin: no petechia, no purpura, no cyanosis, non-pale, not jaundice. Lower extremities: --trace - Pitting edema no deformity, no focal swelling, no calf TTP. Makes eye contact. moves all four extremities. Face: no apparent facial droop. Ambulating in the ED independently. ED COURSE: DISCLAIMER: This medical document was created using an electronic medical record system with voice recognition software and computerized dictation system. Although this document has been carefully reviewed, there might still be some phonetic and typographical errors. Occasional wrong-word or "sound-alike" substitutions may have occurred due to the inherent limitations of voice recognition software. These areas are purely typographical due to imperfections of the software programs and do not reflect any compromise in the patient's medical care. Please read the chart carefully and recognize, using context, where these substitutions have occurred. Chief Complaint: General Weakness Time Seen by MD: 17:05 Reviewed Notes: Allergies Information Source: Patient Mode of Arrival: Ambulatory Severity: Moderate Timing: Days Past Medical History PAST MEDICAL HISTORY: HTN, Thyroid Surgical History: Denies all surgeries PRODUCT MARKETING ANALYST History: No Pertinent PRODUCT MARKETING ANALYST History Family History Family History: Unknown Social History Smoker: Non-Smoker Alcohol: Denies ETOH Use Drugs: Denies Drug Use Lives In: Home Was a procedure done? Was a procedure done?: No Differential Diagnosis (SZ) General Weakness: Anemia, CVA, Dehydration, Dysrhythmia, Electrolyte imbalance, Encephalopathy, Guillain-[place], Hypoglycemia, Hypotension, Hypovolemia, Labyrinthitis, Meniere's disease, Myasthenia gravis, Myocardial infarction, Pulmonary embolus, Renal failure, Repiratory failure, TIA, VBI, Vertigo: central, Vertigo: peripheral, Vestibular neuronitis X-Ray, Labs, Meds, VS Vital Signs Date Time Temp Pulse Resp B/P (MAP) Pulse Ox O2 Delivery O2 Flow Rate FiO2 11/22/24 18:29 98.0 63 17 148/69 (95) 95 98.0 11/22/24 16:17 97.2 64 18 140/68 95 97.2 Lab Test 11/22/24 19:41 11/22/24 17:37 11/22/24 16:35 11/22/24 16:15 Range/Units Troponin I High Sensitivity 21 25 26 </=34 ng/L Triglycerides Level 146 < 150 mg/dL Cholesterol Level 202 H < 200 mg/dL LDL Cholesterol 121 H < 100 mg/dL HDL Cholesterol 61 H 40-59 mg/dL Thyroid Stimulating Hormone (TSH) 1.94 0.55-4.78 uIU/mL Free Thyroxine (T4) Calculated 1.41 0.89-1.76 ng/dL White Blood Count 9.2 # 4.4-10.8 10^3/uL Red Blood Count 4.00 4.0-5.20 10^6/uL Hemoglobin 12.6 12.2-16.2 g/dL Hematocrit 37.1 # 36.0-46.0 % Mean Corpuscular Volume 92.7 80.0-100.0 fL Mean Corpuscular Hemoglobin 31.6 28.0-32.0 pg Mean Corpuscular Hemoglobin Concent 34.1 32.0-36.0 g/dL Red Cell Distribution Width 12.9 11.8-14.3 % Platelet Count 341 140-450 10^3/uL Mean Platelet Volume 6.7 L 6.9-10.8 fL Neutrophils (%) (Auto) 67.0 37.0-80.0 % Lymphocytes (%) (Auto) 23.4 10.0-50.0 % Monocytes (%) (Auto) 8.6 0.0-12.0 % Eosinophils (%) (Auto) 0.6 0.0-7.0 % Basophils (%) (Auto) 0.4 0.0-2.0 % Neutrophils # (Auto) 6.2 1.6-8.6 10 ^3/uL Lymphocytes # (Auto) 2.2 0.4-5.4 10 ^3/uL Monocytes # (Auto) 0.8 0-1.3 10 ^3/uL Eosinophils # (Auto) 0.1 0-0.8 10 ^3/uL Basophils # (Auto) 0 0-0.2 10 ^3/uL Nucleated Red Blood Cells 0.0 % Sodium Level 134 L 136-145 mmol/L Potassium Level 3.4 L 3.5-5.1 mmol/L Chloride Level 97 L 98-107 mmol/L Carbon Dioxide Level 28 20-31 mmol/L Anion Gap 9 5-15 Blood Urea Nitrogen 18 9-23 mg/dL Creatinine 0.76 # 0.550-1.02 mg/dL Glomerular Filtration Rate Calc 77 >90 mL/min BUN/Creatinine Ratio 23.7 H 10.0-20.0 Serum Glucose 108 H 74-106 mg/dL Lactic Acid Level 1.4 0.4-2.0 mmol/L Calcium Level 9.3 8.7-10.4 mg/dL Total Bilirubin 0.6 0.2-1.0 mg/dL Aspartate Amino Transferase (AST) 19 13-40 U/L Alanine Aminotransferase (ALT) 22 7-40 U/L Alkaline Phosphatase 52 46-116 U/L Total Protein 7.3 5.7-8.2 g/dL Albumin 4.8 3.2-4.8 g/dL Lipase 39 12-53 U/L Urine Color Colorless Yellow Urine Clarity Clear Clear Urine pH 7.0 5.0-9.0 Urine Specific [place] 1.006 1.001-1.035 Urine Protein Negative Negative Urine Ketones Negative Negative Urine Blood Negative Negative /uL Urine Nitrite Negative Negative Urine Bilirubin Negative Negative Urine Urobilinogen Normal Negative mg/dL Urine Leukocyte Esterase 1+ Negative /uL Urine RBC 1 0 - 4 /hpf Urine Microscopic WBC 5 0-5 /HPF Urine Squamous Epithelial Cells Few <5 /hpf Urine Bacteria None seen None Seen /hpf Urine Glucose Normal Normal mg/dL Urine Opiates Screen Neg NEGATIVE Urine Fentanyl Screen Neg NEGATIVE Urine Barbiturates Screen Neg NEGATIVE Urine Phencyclidine Screen Neg NEGATIVE Urine Amphetamines Screen Neg NEGATIVE Urine Benzodiazepines Screen Neg NEGATIVE Urine Cocaine Screen Neg NEGATIVE Urine Cannabinoids Screen Neg NEGATIVE [address] [address] Ph: [phone] DIAGNOSTIC IMAGING Diagnostic Imaging Report : [id number] Signed PATIENT: JEISON QUIROSACCT: [id number] UNIT: [id number] : 1940 LOC: ER ROOM / BED: / AGE / SEX: 84 / F ADM STATUS: REG ER SERVICE [id number] ORDERING PHYSICIAN: PANCHO ORDONEZ DO PROCEDURE(s): ABPL - CT AB PEL WO CON-NO ORAL OR IV REASON: abd pain/weak ORDER NUMBER(s): [id number], ACCESSION NUMBER(s): [id number] Indication: abd pain/weak Technique: CT axial images of the abdomen and pelvis are obtained without contrast. Coronal and sagittal reformats were obtained. Radiation Dose Information: CTDI volume is 5.2 mGy. Dose-length product is 246 mGy*cm Comparison: None FINDINGS: There is limited interpretation of the abdomen and pelvis without administration of intravenous contrast. Lung bases demonstrate no pleural effusion. Adrenal glands, spleen, pancreas and liver unremarkable in shape. No CT evidence for cholelithiasis. No hydronephrosis. Nonobstructing right renal calculus measuring 4 mm. Small hiatal hernia. Stomach partially distended. Moderate to large volume stool in the colon especially within the cecum.m normal appendix. Fecal like contents in the mid to distal small bowel with dilatation up to approximately 3 cm. Abdominal aortic atherosclerotic disease. Bladder partially distended. No free pelvic fluid. No inguinal lymphadenopathy. L1 compression deformity with 90% loss height, 7 mm retropulsion. Moderate thoracolumbar degenerative disc disease. Advanced lumbar facet hypertrophic changes at L4-5 and L5-S1. Thoracolumbar levocurvature. IMPRESSION: Limited evaluation without contrast. Moderate to large volume stool within the colon especially in the cecum /ascending colon. There are Fecal like contents within the mid to distal small bowel, likely representing sequela of ileus/ constipation. Atherosclerotic disease. Nonobstructing right renal calculus. Other findings as described. [facility] [id number] [place] [address] Ph: [phone] DIAGNOSTIC IMAGING Diagnostic Imaging Report : [id number] Signed PATIENT: JEISON QUIROST: [id number] UNIT: [id number] : 1940 LOC: ER ROOM / BED: / AGE / SEX: 84 / F ADM STATUS: REG ER SERVICE [id number] ORDERING PHYSICIAN: PANCHO ORDONEZ DO PROCEDURE(s): HWOCT - HEAD WITHOUT CONTRAST REASON: dizzy ORDER NUMBER(s): [id number], ACCESSION NUMBER(s): [id number] CLINICAL HISTORY: dizzy TECHNIQUE: Helical imaging carried out from skull base to vertex without intravenous contrast. This exam was performed according to our departmental dose optimization program. Up-to-date CT equipment and radiation dose reduction techniques are utilized as appropriate. 49.12 CTDIVol: 49.12 mGy DLP: 787.65 mGy-cm WID: COMPARISON: CT HEAD WITHOUT CONTRAST on DOS: 11/15/24 FINDINGS: Mild cerebral volume loss with concordant prominence of the subarachnoid spaces and ventricles. Moderate patchy low attenuation in the cerebral white matter consistent with nonspecific white matter disease. 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 There is no midline shift or mass effect. The waller white matter interfaces are maintained. The basal cisterns are patent. There is no evidence of acute intracranial hemorrhage or extra-axial fluid collection. The mastoid air cells and visualized paranasal sinuses are well-aerated. Prior ocular lens replacement. IMPRESSION: 1. No acute intracranial abnormality. 2. Mild cerebral volume loss and moderate chronic microvascular ischemic change. 3. 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 X-Ray, Labs, Meds, VS Comment Indication: abd pain/weak Technique: CT axial images of the abdomen and pelvis are obtained without contrast. Coronal and sagittal reformats were obtained. Radiation Dose Information: CTDI volume is 5.2 mGy. Dose-length product is 246 mGy*cm Comparison: None FINDINGS: There is limited interpretation of the abdomen and pelvis without administration of intravenous contrast. Lung bases demonstrate no pleural effusion. Adrenal glands, spleen, pancreas and liver unremarkable in shape. No CT evidence for cholelithiasis. No hydronephrosis. Nonobstructing right renal calculus measuring 4 mm. Small hiatal hernia. Stomach partially distended. Moderate to large volume stool in the colon especially within the cecum.m normal appendix. Fecal like contents in the mid to distal small bowel with dilatation up to approximately 3 cm. Abdominal aortic atherosclerotic disease. Bladder partially distended. No free pelvic fluid. No inguinal lymphadenopathy. L1 compression deformity with 90% loss height, 7 mm retropulsion. Moderate thoracolumbar degenerative disc disease. Advanced lumbar facet hypertrophic changes at L4-5 and L5-S1. Thoracolumbar levocurvature. IMPRESSION: Limited evaluation without contrast. Moderate to large volume stool within the colon especially in the cecum /ascending colon. There are Fecal like contents within the mid to distal small bowel, likely representing sequela of ileus/ constipation. Atherosclerotic disease. Nonobstructing right renal calculus. Other findings as described. Time of 1ST Reevaluation: 17:07 Reevaluation 1ST: Unchanged Patient Education/Counseling: Diagnosis, Treatment Family Education/Counseling: No Family Present Comments MDM: patient presented with the above HPI.---dizziness/generalized weakness---workup was initiated. patient was found with the above mentioned diagnosis. the following medications were ordered: please refer to order lists of meds and tests obtained by myself Dr. Ordonez. Patient ED course and VS have been stabilized. Patient has been reassessed in the ED and remained in a stable condition. Pertinent incidental findings were discussed with the patient and/or family. Patient/family voices understanding and is agreeable with plan. Patient has been observed in the ED adequate length of time to insure improvement/stability. Escalation of care considered: Consideration of escalation to observation or admission Patient was ADMITTED to the medicine team for further evaluation and treatment of their presentation. All the reports of any imaging studies that were ordered by myself were reviewed by myself. Departure 1 Departure Time of Disposition: 17:15 Impression: Primary Impression: Dizziness Additional Impression: Generalized weakness Disposition: ADMITTED INPATIENT Admit to: Tele Condition: Guarded Discharged With: Self Critical Care Note Critical Care Time?: No I personally scribed for PANCHO ORDONEZ DO ([facility] on 11/22/24 at 17:12. Electronically submitted by Yolis Martinze ([facility]). I personally scribed for PANCHO ORDONEZ DO ([facility]) on 11/22/24 at 18:12. Electronically submitted by Zahraa Gould ([employer]). I personally scribed for PANCHO ORDONEZ DO ([facility]) on 11/22/24 at 18:57. Electronically submitted by Zahraa Gould ([facility]). PANCHO ORDONEZ DO Nov 22, 2024 17:12
--- NOTE | 2024-11-22 18:16 | DVH ---
CLINICAL HISTORY: dizzy TECHNIQUE: Helical imaging carried out from skull base to vertex without intravenous contrast. This e xam was performed according to our departmental dose optimization program. Up-to-date CT equipment an d radiation dose reduction techniques are utilized as appropriate. 49.12 CTDIVol: 49.12 mGy DLP: 787.65 mGy-cm WID: COMPARISON: CT HEAD WITHOUT CONTRAST on DOS: 11/15/24 FINDINGS: Mild cerebral volume loss with concordant prominence of the subarachnoid spaces and ventricles. Moder ate patchy low attenuation in the cerebral white matter consistent with nonspecific white matter dise ase. 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 There is no midline shift or mass effect. The waller white matter interfaces are maintained. The basal cisterns are patent. There is no evidence of acute intracranial hemorrhage or extra-axial fluid elías ection. The mastoid air cells and visualized paranasal sinuses are well-aerated. Prior ocular lens re placement. IMPRESSION: 1. No acute intracranial abnormality. 2. Mild cerebral volume loss and moderate chronic microvascular ischemic change. 3. 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
[2024-11-22] MEDS: SODIUM CHLORIDE 0.9% 1,000 ML IV ONE ×2 (18:37→21:30)
[2024-11-22] MEDS: POTASSIUM CHL 10 Meq TABLET PO ONE (20:00)
[2024-11-22 20:10] LABS: Urine Protein, UAD Negative (Negative)
[2024-11-22] MEDS ORDERED: ACETAMINOPHEN 325 MG TAB PO PRN (20:30)
--- NOTE | 2024-11-22 20:43 | DVHHPRES ---
History of Present Illness Resident Creating Document: LA RASHID History of Present Illness This is a 84-year-old female with past medical history of hypertension, dyslipidemia, hypothyroidism who presented to the ED with chief complaint of dizziness and generalized weakness. Patient stated that yesterday in the morning she wake up in the morning feeling dizzy with a associated generalized weakness. Patient states that when walking feels he is going to fell down. Patient also reports cold sensation in the body that has been going on for the past couple of days. Patient states that due to weakness is unable to walk long distances at this time. Patient denies fever, chills, chest pain, shortness of breath, cough, lower extremity weakness or any other associated symptoms. Upon admission, CBC and CMP were grossly unremarkable, troponins were negative. CT of the abdomen was showing signs of constipation but otherwise unremarkable. CT scan of the head was grossly unremarkable. We will admit the patient for further assessment and management. Home medications: Nuesldkoiuclm50 mcg daily, losartan (dosage unknown), mirtazapine 50 mg one tablet every night, nifedipine 60 mg daily, rosuvastatin 10 mg daily, ivagmerfqf20 mg daily, tramadol 50 mg q.12 hours PRN Past surgical history: Hysterectomy 45 years ago Social history: Denies drug consumption, alcohol or smoking. Lives at home alone. Cardiovascular: HTN, hyperipidemia Endocrine: Hypothyroidism Past Surgical History: Hysterectomy Family History: None Smoke: No ALCOHOL: none Drugs: None Lives: Alone Domestic Violence: Neg Review of Systems Constitutional: Yes: Weakness, Malaise; No: Fever, Chills, Sweats, Other Eyes: No: Pain, Vision change, Conjunctivae inflammation, Eyelid inflammation, Other, Redness ENT: No: Ear pain, Ear discharge, Nose pain, Nose discharge, Nose congestion, Mouth pain, Mouth swelling, Throat pain, Throat swelling, Other Respiratory: No: Cough, Dry, Shortness of breath, SOB with excertion, Wheezing, Hemoptysis, Pleuritic Pain, Sputum, Wheezing, Other Cardiovascular: No: Chest Pain, Palpitations, Orthopnea, Paroxysmal Noc. Dyspnea, Edema, Lt Headedness, Other Gastrointestinal: No: Nausea, Vomiting, Abdominal Pain, Diarrhea, Constipation, Melena, Hematochezia, Other Genitourinary: No Dysuria, No Frequency, No Incontinence, No Hematuria, No Retention, No Other Musculoskeletal: No: other, neck pain, shoulder pain, arm pain, back pain, hand pain, leg pain, foot pain Skin: No: Rash, Lesions, Jaundice, Bruising, Other Neurological: Weakness, Other (Dizziness); No: Numbness, Incoordination, Change in speech, Confusion, Seizures Allergies: Coded Allergies: No Known Drug Allergy (Verified Allergy, Unknown, 03/15/24) Exam Vital Signs Vital Signs Date Time Temp Pulse Resp B/P (MAP) Pulse Ox O2 Delivery O2 Flow Rate FiO2 11/22/24 18:29 98.0 63 17 148/69 (95) 95 98.0 General Appearance: Alert, Oriented X3, Cooperative, No acute distress HEENT: Atraumatic, PERRLA, EOMI, Mucous membr. moist/pink Respiratory: Clear to auscultation, Normal air movement Cardiovascular: Regular rate, Normal S1, Normal S2, No murmurs Abdominal: Normal bowel sounds, Soft, No tenderness, No hepatospenomegaly, No masses Extremities: No clubbing, No cyanosis, No edema, Normal pulses, No tendern ess/swelling Skin: No rashes, No breakdown, No significant lesion Neuro: Normal speech, Strength at 5/5 X4 ext, Normal tone, Sensation intact, Cranial nerves 3-12 NL, Reflexes 2+, Other (Patient unable to walk long distances due to generalized weakness) Psych/Mental Status: Mental status NL, Mood NL Labs/Xrays Labs Test 11/22/24 19:41 11/22/24 16:35 11/22/24 16:15 Range/Units Troponin I High Sensitivity 21 </=34 ng/L White Blood Count 9.2 # 4.4-10.8 10^3/uL Red Blood Count 4.00 4.0-5.20 10^6/uL Hemoglobin 12.6 12.2-16.2 g/dL Hematocrit 37.1 # 36.0-46.0 % Mean Corpuscular Volume 92.7 80.0-100.0 fL Mean Corpuscular Hemoglobin 31.6 28.0-32.0 pg Mean Corpuscular Hemoglobin Concent 34.1 32.0-36.0 g/dL Red Cell Distribution Width 12.9 11.8-14.3 % Platelet Count 341 140-450 10^3/uL Mean Platelet Volume 6.7 L 6.9-10.8 fL Neutrophils (%) (Auto) 67.0 37.0-80.0 % Lymphocytes (%) (Auto) 23.4 10.0-50.0 % Monocytes (%) (Auto) 8.6 0.0-12.0 % Eosinophils (%) (Auto) 0.6 0.0-7.0 % Basophils (%) (Auto) 0.4 0.0-2.0 % Neutrophils # (Auto) 6.2 1.6-8.6 10 ^3/uL Lymphocytes # (Auto) 2.2 0.4-5.4 10 ^3/uL Monocytes # (Auto) 0.8 0-1.3 10 ^3/uL Eosinophils # (Auto) 0.1 0-0.8 10 ^3/uL Basophils # (Auto) 0 0-0.2 10 ^3/uL Nucleated Red Blood Cells 0.0 % Sodium Level 134 L 136-145 mmol/L Potassium Level 3.4 L 3.5-5.1 mmol/L Chloride Level 97 L 98-107 mmol/L Carbon Dioxide Level 28 20-31 mmol/L Anion Gap 9 5-15 Blood Urea Nitrogen 18 9-23 mg/dL Creatinine 0.76 # 0.550-1.02 mg/dL Glomerular Filtration Rate Calc 77 >90 mL/min BUN/Creatinine Ratio 23.7 H 10.0-20.0 Serum Glucose 108 H 74-106 mg/dL Lactic Acid Level 1.4 0.4-2.0 mmol/L Calcium Level 9.3 8.7-10.4 mg/dL Total Bilirubin 0.6 0.2-1.0 mg/dL Aspartate Amino Transferase (AST) 19 13-40 U/L Alanine Aminotransferase (ALT) 22 7-40 U/L Alkaline Phosphatase 52 46-116 U/L Total Protein 7.3 5.7-8.2 g/dL Albumin 4.8 3.2-4.8 g/dL Lipase 39 12-53 U/L Urine Color Colorless Yellow Urine Clarity Clear Clear Urine pH 7.0 5.0-9.0 Urine Specific [place] 1.006 1.001-1.035 Urine Protein Negative Negative Urine Ketones Negative Negative Urine Blood Negative Negative /uL Urine Nitrite Negative Negative Urine Bilirubin Negative Negative Urine Urobilinogen Normal Negative mg/dL Urine Leukocyte Esterase 1+ Negative /uL Urine RBC 1 0 - 4 /hpf Urine Microscopic WBC 5 0-5 /HPF Urine Squamous Epithelial Cells Few <5 /hpf Urine Bacteria None seen None Seen /hpf Urine Glucose Normal Normal mg/dL SEPSIS Sepsis Screen Date sepsis recognized/suspect: Nov 22, 2024 Time Sepsis recognized/suspect: 1620 Recent Procedure: No On Antibiotic Therapy: No Respiratory Rate >20: No Heart Rate >90: No Temp<36 C (96.8 F) or >38.3 C: No SBP <90 or MAP <65 mmHG: No New Acute Mental Status Change: No Is the patient on CPAP, BIPAP,: No Physician Orders Briar Wood Sorter (11/22/24 ) Ct Ab Pel Wo Con-No Oral Or Iv (11/22/24 16:15) Electrocardigram (11/22/24 16:15) Stroke Assessment (11/22/24 17:15) Head Without Contrast (11/22/24 17:15) Admit (11/22/24 20:22) Code Status (11/22/24 20:22) Vital Signs .PER UNIT PROTOCOL (11/22/24 20:22) Review Orders With Adm.Md (11/22/24 20:22) Encourage Activity As Tolerate (11/22/24 20:22) Regular Diet (11/23/24 Breakfast) Acetaminophen Tablet (Tylenol Tablet) (11/22/24 20:30) Notify Md Of Changes From Base (11/22/24 20:22) Advance Directive (11/22/24 20:22) Basic Metabolic Panel (11/23/24 04:00) Complete Blood Count (11/23/24 04:00) Lipid Panel (11/22/24 20:22) Patient Condition (11/22/24 20:22) Allergies (11/22/24 20:22) Drug Screen (11/22/24 20:22) Hemoglobin A1c (11/22/24 20:22) Lovenox 40mg (11/23/24 10:00) Vital Signs Date Time Temp Pulse Resp B/P (MAP) Pulse Ox O2 Delivery O2 Flow Rate FiO2 11/22/24 18:29 98.0 63 17 148/69 (95) 95 98.0 11/22/24 16:17 97.2 64 18 140/68 95 97.2 Laboratory Tests Test 11/22/24 16:35 Lactic Acid Level 1.4 mmol/L (0.4-2.0) White Blood Count 9.2 10^3/uL (4.4-10.8) # Medications Medications Dose Ordered Sig/Ibrahima Route Start Time Stop Time Status Last Admin Dose Admin Sodium Chloride 1,000 ml @ 1,000 mls/hr Q1H ONCE IV 11/22/24 17:30 11/22/24 18:29 DC 11/22/24 18:37 1,000 MLS/HR Assessment/Plan Assessment/Plan Assessment/plan Acute dizziness and generalized weakness likely Possible metabolic encephalopathy Hypothyroidism Dyslipidemia Primary hypertension R/O UTI Plan -NS 0.9% L of fluid was given in the ED -continue fluids at 60 cc/hour -waiting for urinalysis results -ordered TSH and free T4 -CT scan of the head was grossly unremarkable -CT of the abdomen showing constipation. Miralax 17g once. -Start levothyroxine 75mcg daily -Start losartan 100mg daily -Start atorvastatin 20mg daily Goals of care discussed with the patient and son at bedside, full code Plan discussed with Dr. Bauer Plan discussed with: Patient, Son My Orders Orders - LA RASHID RESIDENT Procedure Category Date Status Time Admit ADMIT 11/22/24 Transmitted 20:22 Code Status CODE 11/22/24 Transmitted 20:22 Vital Signs [facility] 11/22/24 Transmitted 20:22 Review Orders With [facility] 11/22/24 Transmitted Adm. 20:22 Encourage Activity As THIAGO 11/22/24 Transmitted Tolerate 20:22 Regular Diet DIET 11/23/24 Transmitted Breakfast Acetaminophen Tablet PHA 11/22/24 Transmitted (Tylenol Tablet) 20:30 Notify Of Changes [facility] 11/22/24 Transmitted From Base 20:22 Advance Directive [facility] 11/22/24 Transmitted 20:22 Basic Metabolic Panel LAB 11/23/24 Verified 04:00 Complete Blood Count LAB 11/23/24 Verified 04:00 Lipid Panel LAB 11/22/24 Transmitted 20:22 Patient Condition ORDERS 11/22/24 Transmitted 20:22 Allergies [facility] 11/22/24 Transmitted 20:22 Drug Screen LAB 11/22/24 Transmitted 20:22 Hemoglobin A1c LAB 11/22/24 Transmitted 20:22 Lovenox 40mg PHA 11/23/24 Transmitted 10:00 Date of Service: Nov 22, 2024 ([place] Patient ) Billing Provider: FLORENTIN BAUER MD Common Visit Codes: 50233-[id number] INP/OBS CARE (HIGH) Secondary Visit Codes: [id number] CARE PLAN 30 MINUTES LA RASHID RESIDENT Nov 22, 2024 20:43 FLORENTIN BAUER MD Nov 23, 2024 14:10
[2024-11-22 20:50] LABS: Triglycerides 146 mg/dL (< 150)
[2024-11-22 20:53] LABS: Cholesterol 202 mg/dL (< 200); HDL Cholesterol 61 mg/dL (40-59)
[2024-11-22 20:55] VITALS: PULSE 63; RESP 17; O2SAT 98
[2024-11-22 21:49] LABS: Amphetamine Screen, Urine Neg (NEGATIVE); Barbiturate Scree,Urine Neg (NEGATIVE); Benzodiazephine Screen, Urine Neg (NEGATIVE); Cannabinoid Screen, Urine Neg (NEGATIVE); Cocaine Screen, Urine Neg (NEGATIVE); Opiate Scree,Urine Neg (NEGATIVE); Phencyclidine Screen, Urine Neg (NEGATIVE)
[2024-11-23] VITALS (8 sets, daily range): BP systolic 153–170; BP diastolic 85–95; PULSE 61–77; RESP 16–20; TEMP 36.6; O2SAT 95–99
[2024-11-23 04:59] LABS: COVID19 ANTIGEN SOFIA FIA NEGATIVE (NEGATIVE)
[2024-11-23 06:39] LABS: Anion Gap 6 (5-15); Carbon Dioxide 27 mmol/L (20-31); Chloride 105 mmol/L (98-107); Potassium 3.6 mmol/L (3.5-5.1); Sodium 138 mmol/L (136-145)
[2024-11-23 06:45] LABS: BUN/Creatinine Ratio 16.0 (10.0-20.0); Blood Urea Nitrogen 13 mg/dL (9-23); Glucose 87 mg/dL (74-106)
[2024-11-23 07:03] LABS: Calcium 8.5 mg/dL (8.7-10.4); Hematocrit 31.6 % (36.0-46.0); Hemoglobin 10.9 g/dL (12.2-16.2); Mean Corpuscular Hemoglobin 31.9 pg (28.0-32.0); Mean Corpuscular Volume 92.4 fL (80.0-100.0); Nucleated Red Blood Cells % 0.0 %
[2024-11-23] MEDS: POLYETHYLENE GLYCOL 17 GM PWDR PO ONE (07:49)
[2024-11-23] MEDS: LEVOTHYROXINE SODIUM 25 MCG TAB PO SCH (08:10)
[2024-11-23] MEDS: LOSARTAN POTASSIUM 50 MG TAB PO SCH (09:37)
[2024-11-23] MEDS: ATORVASTATIN 20 MG TAB PO SCH (09:37)
[2024-11-23] MEDS: ENOXAPARIN SOD 40 MG/0.4 ML SYRINGE SC SCH (09:38)
--- NOTE | 2024-11-23 15:31 | DVHDS2 ---
Discharge Summary Date of Admission Nov 22, 2024 at 20:22 Date of Discharge: Nov 23, 2024 Labs/Diagnostic Data: Laboratory Results Test 11/23/24 05:58 11/23/24 04:00 11/22/24 19:41 11/22/24 17:37 White Blood Count 5.6 10^3/uL (4.4-10.8) Red Blood Count 3.42 10^6/uL (4.0-5.20) Hemoglobin 10.9 g/dL (12.2-16.2) Hematocrit 31.6 % (36.0-46.0) Mean Corpuscular Volume 92.4 fL (80.0-100.0) Mean Corpuscular Hemoglobin 31.9 pg (28.0-32.0) Mean Corpuscular Hemoglobin Concent 34.6 g/dL (32.0-36.0) Red Cell Distribution Width 12.8 % (11.8-14.3) Platelet Count 281 10^3/uL (140-450) Mean Platelet Volume 7.0 fL (6.9-10.8) Neutrophils (%) (Auto) 63.8 % (37.0-80.0) Lymphocytes (%) (Auto) 24.1 % (10.0-50.0) Monocytes (%) (Auto) 10.5 % (0.0-12.0) Eosinophils (%) (Auto) 1.1 % (0.0-7.0) Basophils (%) (Auto) 0.5 % (0.0-2.0) Neutrophils # (Auto) 3.6 10 ^3/uL (1.6-8.6) Lymphocytes # (Auto) 1.3 10 ^3/uL (0.4-5.4) Monocytes # (Auto) 0.6 10 ^3/uL (0-1.3) Eosinophils # (Auto) 0.1 10 ^3/uL (0-0.8) Basophils # (Auto) 0 10 ^3/uL (0-0.2) Nucleated Red Blood Cells 0.0 % Sodium Level 138 mmol/L (136-145) Potassium Level 3.6 mmol/L (3.5-5.1) Chloride Level 105 mmol/L (98-107) Carbon Dioxide Level 27 mmol/L (20-31) Anion Gap 6 (5-15) Blood Urea Nitrogen 13 mg/dL (9-23) Creatinine 0.81 mg/dL (0.550-1.02) Glomerular Filtration Rate Calc 71 mL/min (>90) BUN/Creatinine Ratio 16.0 (10.0-20.0) Serum Glucose 87 mg/dL (74-106) Calcium Level 8.5 mg/dL (8.7-10.4) Influenza Type A Antigen Negative (Negative) Influenza Type B Antigen Negative (Negative) SARS-CoV-2 Antigen (Rapid) Negative (NEGATIVE) Troponin I High Sensitivity 21 ng/L (</=34) Triglycerides Level 146 mg/dL (< 150) Cholesterol Level 202 mg/dL (< 200) LDL Cholesterol 121 mg/dL (< 100) HDL Cholesterol 61 mg/dL (40-59) Thyroid Stimulating Hormone (TSH) 1.94 uIU/mL (0.55-4.78) Test 11/22/24 16:35 11/22/24 16:15 Lactic Acid Level 1.4 mmol/L (0.4-2.0) Total Bilirubin 0.6 mg/dL (0.2-1.0) Aspartate Amino Transferase (AST) 19 U/L (13-40) Alanine Aminotransferase (ALT) 22 U/L (7-40) Alkaline Phosphatase 52 U/L (46-116) Total Protein 7.3 g/dL (5.7-8.2) Albumin 4.8 g/dL (3.2-4.8) Lipase 39 U/L (12-53) Urine Color Colorless (Yellow) Urine Clarity Clear (Clear) Urine pH 7.0 (5.0-9.0) Urine Specific [place] 1.006 (1.001-1.035) Urine Protein Negative (Negative) Urine Ketones Negative (Negative) Urine Blood Negative /uL (Negative) Urine Nitrite Negative (Negative) Urine Bilirubin Negative (Negative) Urine Urobilinogen Normal mg/dL (Negative) Urine Leukocyte Esterase 1+ /uL (Negative) Urine RBC 1 /hpf (0 - 4) Urine Microscopic WBC 5 /HPF (0-5) Urine Squamous Epithelial Cells Few /hpf (<5) Urine Bacteria None seen /hpf (None Seen) Urine Glucose Normal mg/dL (Normal) Urine Opiates Screen Neg (NEGATIVE) Urine Fentanyl Screen Neg (NEGATIVE) Urine Barbiturates Screen Neg (NEGATIVE) Urine Phencyclidine Screen Neg (NEGATIVE) Urine Amphetamines Screen Neg (NEGATIVE) Urine Benzodiazepines Screen Neg (NEGATIVE) Urine Cocaine Screen Neg (NEGATIVE) Urine Cannabinoids Screen Neg (NEGATIVE) Other Laboratory Tests 11/23/24 05:58 Brief Hx & Hospital Course: 84 F with HTN, HLD hypothyroidism admitted for dizziness and weakness, denies syncope. worse when getting up. labs unremarkable, received IV bolus in ED. improved, dizziness resolved. BP elevated, resume home meds at home, avoid polypharmacy will not add meds. 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 stable to dc, f/u with dc clcinic, recc higher BP goal at home to avoid orthostatic. informed patient to stop taking clonidine as needed . Condition at Discharge: Good Final Diagnosis/Problems List dizziness from orthostatic hypotension likely polypharmacy Hypothyroidism Dyslipidemia Primary hypertension no UTI slow transit constipation Discharge Disposition: Home Discharge Instruct/Medications Diet: Consistent carbohydrate, Cardiac 2g Na,low cholest Activity: No Restrictions, As Tolerated Follow Up/Referral: dc clinic Scheduled Cholecalciferol (Vitamin D3), 1 TAB PO DAILY, (Reported) Levothyroxine Sodium (Levothyroxine Sodium), 75 MCG PO QAM, (Reported) Losartan Potassium & Hydrochlo (Hyzaar), 1 TAB PO DAILY, (Reported) Mirtazapine (Remeron), 1 TAB PO QPM, (Reported) Nifedipine (Nifedipine Er), 1 TAB PO DAILY, (Reported) Rosuvastatin Calcium (Crestor), 1 TAB PO HS, (Reported) Sertraline Hcl (Zoloft), 1 TAB PO DAILY, (Reported) Tramadol Hcl (Tramadol Hcl), 50 MG PO [id number], (Reported) Trazodone Hcl (Trazodone Hcl), 50 MG PO HS, (Reported) Scheduled PRN Clonidine Hydrochloride (Clonidine Hcl), 0.1 MG PO Q8HPRN PRN Discharge Statement: "Patient was advised to return to the ER or call 911 if any headaches, dizziness, shortness of breath, chest pain, abdominal pain, bleeding, fevers, or worsening of medical condition. Patient was counseled about treatment plan, medications, possible side effects, patientverbalized understanding. All questions were answered to the best of my ability. This discharge took greater then 30 minutes in planning, reviewing documentation, counseling the patient, and discussing with other team members." ASSESSMENT ASSESSMENT Assessment dizziness orthostatic hypotension Date of Service: Nov 23, 2024 Billing Provider: WILLIE MAGALLON MD Common Visit Codes: 59280-CKF/OBS DISCH DAY >30min WILLIE MAGALLON MD Nov 23, 2024 15:31
== END 2024-11-23 17:27 | disposition home or self-care (01) | DRG 312 ==
LOC: ER 15:54 → OVERFLOW 20:22 → WEST WING 23:56
PROVIDERS: ADMIT Student in an Organized Health Care Education/Training Program; ATTEND Emergency Medicine
DX: I95.1 Orthostatic hypotension (principal); E03.9 Hypothyroidism, unspecified; E78.5 Hyperlipidemia, unspecified; K59.01 Slow transit constipation; I10 Essential (primary) hypertension; Z20.822 Contact with and (suspected) exposure to COVID-19; T50.995A Adverse effect of other drugs, medicaments and biological substances, initial encounter; Z90.710 Acquired absence of both cervix and uterus; Z86.73 Personal history of transient ischemic attack (TIA), and cerebral infarction without residual deficits; Y92.89 Other specified places as the place of occurrence of the external cause
CPT/HCPCS: 36415; 70450; 74176; 80048; 80053; 80061; 80307; 81001; 83605; 83690; 84439; 84443; 84484; 85025; 87426; 87804; 96360; G0378

== ENCOUNTER 2024-11-23 22:17 | Inpatient (IN) | payer OTHER ==
[~2024-11-23] VITALS: Ht 157.5 cm; Wt 53.0 kg
[2024-11-23 22:50] LABS: Hematocrit 35.1 % (36.0-46.0); Hemoglobin 11.9 g/dL (12.2-16.2); Mean Corpuscular Hemoglobin 31.4 pg (28.0-32.0); Mean Corpuscular Volume 92.6 fL (80.0-100.0); Nucleated Red Blood Cells % 0.0 %
--- NOTE | 2024-11-23 22:50 | ED.PDOC ---
History of Present Illness HPI Comments 84 y/o Cambodian speaking F, with a Hx of HTN, presents with neighbor for c/c of lightheadedness and generalized weakness. Patient reports on return of symptoms after being evaluated, earlier, for same symptoms after being found hypertensive. Denial of any chest pain, shortness of breath, or further associated symptoms. Chief Complaint: High Blood Pressure Time Seen by MD: 22:40 Reviewed Notes: Nurses Notes, Medications, Allergies Allergies: Coded Allergies: No Known Drug Allergy (Verified Allergy, Unknown, 03/15/24) Home Meds Active Scripts Clonidine Hydrochloride (Clonidine Hcl) 0.1 Mg Tab, 0.1 MG PO Q8HPRN PRN, #30 TAB for SBP above 150 or DBP above 90 Prov:PAULO BHATTI MD 11/19/24 Reported Medications Losartan Potassium & Hydrochlo (Hyzaar) 1 Tab Tab, 1 TAB PO DAILY, #30 TAB 5 Refills 11/16/24 Nifedipine (Nifedipine Er) 60 Mg Tab, 1 TAB PO DAILY, #30 TAB 5 Refills 11/16/24 Cholecalciferol (VITAMIN D3) 2,000 Unit Tab, 1 TAB PO DAILY, #30 TAB 5 Refills 11/16/24 Trazodone Hcl (Trazodone Hcl) 50 Mg Tab, 50 MG PO HS, TAB 11/16/24 Levothyroxine Sodium (Levothyroxine Sodium) 25 Mcg Tab, 75 MCG PO QAM, MCG 11/16/24 Mirtazapine (Remeron) 15 Mg Tab, 1 TAB PO QPM, #30 TAB 1 Refill 11/16/24 Sertraline Hcl (Zoloft) 25 Mg Tab, 1 TAB PO DAILY, #30 TAB 2 Refills 11/16/24 Rosuvastatin Calcium (Crestor) 10 Mg Tab, 1 TAB PO HS, #30 TAB 5 Refills 11/16/24 Tramadol Hcl (Tramadol Hcl) 50 Mg Tab, 50 MG PO [id number], MG 11/16/24 Information Source: Patient, Friend Mode of Arrival: Ambulatory Severity: Moderate Timing: Hours Duration: Since onset Prehospital treatment: None Past Medical History PAST MEDICAL HISTORY: HTN, Thyroid Surgical History: Denies all surgeries INSTRUMENTATION TECHNICIAN History: No Pertinent INSTRUMENTATION TECHNICIAN History Family History Family History: Unknown Social History Smoker: Non-Smoker Alcohol: Denies ETOH Use Drugs: Denies Drug Use Lives In: Home All Other Systems: Reviewed and Negative (Comprehensive review of systems are negative unless stated in HPI) Physical Exam General Appearance: No Apparent Distress, Normal HEENT: Normal ENT Inspection, Pharynx Normal, TMs Normal Neck: Full Range of Motion, Non-Tender, Normal, Normal Inspection Respiratory: Chest Non-Tender, Lungs Clear, No Accessory Muscle Use, No Respiratory Distress, Normal Breath Sounds Cardiovascular: No Edema, No JVD, No Murmur, No Gallop, Normal Peripheral Pulses, Regular Rate/Rhythm Breast Exam: Deferred Gastrointestinal: No Organomegaly, Non Tender, No Pulsatile Mass, Normal Bowel Sounds, Soft Genitalia: Deferred Pelvic: Deferred Rectal: Deferred Extremities: No calf tenderness, Normal capillary refill, Normal inspection, Normal range of motion, Non-tender, No pedal edema Musculoskeletal : Apperance: Normal Neurologic: Alert, community leader II-XII nml as Tested, No Motor Deficits, Normal Mood, No Sensory Deficits, Other (anxious affect ) Cerebellar Function: Normal Reflexes: Normal Skin: Dry, Normal Color, Warm Lymphatic: No Adenopathy Was a procedure done? Was a procedure done?: No Differential Dx Considerations may include: HTN emergency, inappropriate medication dosage, anxiety, noncompliance, among others X-Ray, Labs, Meds, VS Vital Signs Date Time Temp Pulse Resp B/P (MAP) Pulse Ox O2 Delivery O2 Flow Rate FiO2 11/23/24 22:19 99.3 68 14 177/88 99 99.3 Lab Test 11/23/24 23:31 11/23/24 22:35 Range/Units Troponin I High Sensitivity Pending 116 *H </=34 ng/L White Blood Count 6.8 4.4-10.8 10^3/uL Red Blood Count 3.79 L 4.0-5.20 10^6/uL Hemoglobin 11.9 L 12.2-16.2 g/dL Hematocrit 35.1 #L 36.0-46.0 % Mean Corpuscular Volume 92.6 80.0-100.0 fL Mean Corpuscular Hemoglobin 31.4 28.0-32.0 pg Mean Corpuscular Hemoglobin Concent 33.9 32.0-36.0 g/dL Red Cell Distribution Width 13.1 11.8-14.3 % Platelet Count 311 140-450 10^3/uL Mean Platelet Volume 6.7 L 6.9-10.8 fL Neutrophils (%) (Auto) 64.4 37.0-80.0 % Lymphocytes (%) (Auto) 24.6 10.0-50.0 % Monocytes (%) (Auto) 9.8 0.0-12.0 % Eosinophils (%) (Auto) 0.9 0.0-7.0 % Basophils (%) (Auto) 0.3 0.0-2.0 % Neutrophils # (Auto) 4.4 1.6-8.6 10 ^3/uL Lymphocytes # (Auto) 1.7 0.4-5.4 10 ^3/uL Monocytes # (Auto) 0.7 0-1.3 10 ^3/uL Eosinophils # (Auto) 0.1 0-0.8 10 ^3/uL Basophils # (Auto) 0 0-0.2 10 ^3/uL Nucleated Red Blood Cells 0.0 % Sodium Level 137 136-145 mmol/L Potassium Level 3.5 3.5-5.1 mmol/L Chloride Level 101 98-107 mmol/L Carbon Dioxide Level 27 20-31 mmol/L Anion Gap 9 5-15 Blood Urea Nitrogen 16 9-23 mg/dL Creatinine 0.76 0.550-1.02 mg/dL Glomerular Filtration Rate Calc 77 >90 mL/min BUN/Creatinine Ratio 21.1 H 10.0-20.0 Serum Glucose 121 H 74-106 mg/dL Calcium Level 9.0 8.7-10.4 mg/dL Magnesium Level 2.1 1.6-2.6 mg/dL Total Bilirubin 0.6 0.2-1.0 mg/dL Aspartate Amino Transferase (AST) 19 13-40 U/L Alanine Aminotransferase (ALT) 22 7-40 U/L Alkaline Phosphatase 59 46-116 U/L Total Protein 6.7 5.7-8.2 g/dL Albumin 4.4 3.2-4.8 g/dL Time of 1ST Reevaluation: 23:20 Reevaluation 1ST: Unchanged Patient Education/Counseling: Treatment Family Education/Counseling: No Family Present SEPSIS Sepsis Screen Date sepsis recognized/suspect: Nov 23, 2024 Time Sepsis recognized/suspect: 2218 Recent Procedure: No On Antibiotic Therapy: No Respiratory Rate >20: No Heart Rate >90: No Temp<36 C (96.8 F) or >38.3 C: No SBP <90 or MAP <65 mmHG: No New Acute Mental Status Change: No Is the patient on CPAP, BIPAP,: No Physician Orders Electrocardigram (11/23/24 22:26) Troponin-I Hs (11/23/24 23:26) Troponin-I Hs (11/24/24 01:26) Urinalysis (11/23/24 22:32) Aspirin Tablet (11/24/24 00:15) Vital Signs Date Time Temp Pulse Resp B/P (MAP) Pulse Ox O2 Delivery O2 Flow Rate FiO2 11/23/24 22:19 99.3 68 14 177/88 99 99.3 Laboratory Tests Test 11/23/24 22:35 White Blood Count 6.8 10^3/uL (4.4-10.8) Departure 1 Departure Time of Disposition: 00:10 Impression: Primary Impression: Hypertensive urgency Additional Impression: Acute coronary syndrome Disposition: ADMITTED INPATIENT Admit to: [facility] Condition: Guarded Discharged With: Self Comments 84-year-old female with elevated blood pressure and generalized weakness. Patient was given lisinopril for her blood pressure elevation. Her troponin is elevated in the 100s. Patient was given aspirin. Patient will need to be admitted for acute coronary syndrome and hypertensive urgency. Critical Care Note Critical Care Time?: Yes (35 min-critical care time only) Critical care comment: Total critical care time: Approximately 36 minutes Due to a high probability of clinically significant, life threatening deterioration, the patient required my highest level of preparedness to intervene emergently and I personally spent this critical care time directly and personally managing the patient. This critical care time included obtaining a history; examining the patient; pulse oximetry; ordering and review of studies; arranging urgent treatment with development of a management plan; evaluation of patient's response to treatment; frequent reassessment; and, discussions with other providers. This critical care time was performed to assess and manage the high probability of imminent, life-threatening deterioration that could result in multi-organ failure. It was exclusive of separately billable procedures and treating other patients. Stability Stability form required: No Heart Score Heart Score: Heart Score Response (Comments) Value History Moderate Suspicious 1 EKG Repolarization Disturb 1 Age >65 2 Risk Factors 1 or 2 risk factors 1 Troponin 1-2 x's Normal limit 1 Total 6 I personally scribed for ORLANDO ORTEGA MD ([email or web address]) on 11/23/24 at 22:50. Electronically submitted by Reinier Leavitt ([email or web address]). ORLANDO ORTEGA MD Nov 23, 2024 22:50
[2024-11-23 23:10] LABS: Alanine Aminotransferase 22 U/L (7-40); Albumin 4.4 g/dL (3.2-4.8); Alkaline Phosphatase 59 U/L (46-116); Anion Gap 9 (5-15); BUN/Creatinine Ratio 21.1 (10.0-20.0); Bilirubin, Total 0.6 mg/dL (0.2-1.0); Blood Urea Nitrogen 16 mg/dL (9-23); Calcium 9.0 mg/dL (8.7-10.4); Carbon Dioxide 27 mmol/L (20-31); Chloride 101 mmol/L (98-107); Magnesium 2.1 mg/dL (1.6-2.6); Sodium 137 mmol/L (136-145); Total Protein 6.7 g/dL (5.7-8.2)
[2024-11-23 23:12] LABS: Glucose 121 mg/dL (74-106); Potassium 3.5 mmol/L (3.5-5.1)
[2024-11-24] VITALS (10 sets, daily range): BP systolic 109–217; BP diastolic 69–82; PULSE 37–68; RESP 16–19; TEMP 96.9–98.5; O2SAT 96–99
[2024-11-24] MEDS ORDERED: MORPHINE SULFATE INJ 2 MG/ml SYRG IV PRN (00:45)
[2024-11-24] MEDS ORDERED: ACETAMINOPHEN 325 MG TAB PO PRN (00:45)
[2024-11-24] MEDS ORDERED: ONDANSETRON HCL 4 MG/2 ML VIAL IV PRN (00:45)
[2024-11-24] MEDS ORDERED: NITROGLYCERIN 0.4 MG SL TAB SL PRN (00:45)
[2024-11-24] MEDS: LISINOPRIL 5 MG TAB PO ONE (02:15)
--- NOTE | 2024-11-24 05:14 | DVHHP2 ---
History of Present Illness Reason for Visit: Hypertension History of Present Illness 84-year-old female presents for evaluation of hypertension. Patient reports generalized weakness with lightheadedness. On arrival patient's blood pressure was in the 170s. Denies any chest pain no shortness a breath. No headache or blurred vision. Past Medical History Hypertension and thyroid Past Surgical History Denies Family History Noncontributory Smoke: No ALCOHOL: none Drugs: None Lives: with Family Review of Systems Review of Systems Review of systems are currently negative otherwise addressed in HPI. Allergies: Coded Allergies: No Known Drug Allergy (Verified Allergy, Unknown, 03/15/24) Medications Current Medications Medications Dose Ordered Sig/Ibrahima Route Start Time Stop Time Status Last Admin Dose Admin Clonidine HCl 0.1 mg Q6HP PRN PO 11/24/24 00:45 11/24/24 02:15 0.1 MG Levothyroxine Sodium 75 mcg QAM@0600 PO 11/24/24 06:00 Losartan Potassium 100 mg DAILY PO 11/24/24 10:00 Hydrochlorothiazide 25 mg DAILY PO 11/24/24 10:00 Nifedipine 60 mg DAILY PO 11/24/24 10:00 Sertraline HCl 25 mg DAILY PO 11/24/24 10:00 Atorvastatin Calcium 10 mg HS PO 11/24/24 22:00 Aspirin 81 mg DAILY PO 11/24/24 10:00 Ondansetron HCl 4 mg Q4HP PRN IV 11/24/24 00:45 Enoxaparin Sodium 40 mg DAILY SC 11/24/24 10:00 Acetaminophen 650 mg Q6HP PRN PO 11/24/24 00:45 Nitroglycerin 0.4 mg Q5MINP PRN SL 11/24/24 00:45 Morphine Sulfate 2 mg Q30M PRN IV 11/24/24 00:45 Exam Vital Signs Vital Signs Date Time Temp Pulse Resp B/P (MAP) Pulse Ox O2 Delivery O2 Flow Rate FiO2 11/24/24 03:09 98.0 58 18 217/73 (121) 99 98.0 11/24/24 02:55 Room Air* 0 21 Exam Gen: 84-year-old female in no apparent distress. Skin: Warm, dry, normal color and texture, no rash. HEENT: Normocephalic atraumatic, mucous membranes moist and pink. Neck: Cervical and supraclavicular nodes normal without enlargement, trachea is midline, thyroid gland is normal without masses. Pulmonary: Clear to auscultation and percussion bilaterally. Cardiac: Regular rate and rhythm. No murmur Abdomen: Soft, nontender, nondistended, bowel sounds present all 4 quadrants, no guarding, no rigidity, no organomegaly. Extremities: No cyanosis, clubbing, no edema Neuro: Cranial nerves II through XII grossly intact, normal affect and speech, no focal motor deficits. Labs/Xrays ORDERING PHYSICIAN: ELIZABETH BRENNAN RESIDENT PROCEDURE(s): ECIDC - ECHO 2D MODE CARDIAC DOP REASON: Presyncope ORDER NUMBER(s): [id number], ACCESSION NUMBER(s): [id number] APPROVED REPORT EXAM: LIMITED Two-dimensional and M-mode echocardiogram. Blood Pressure: 150/69 mmHg INDICATION Presyncope RISK FACTORS Height: 5' 2", Weight: 116 DIMENSIONS LVDd 3.7 (3.8-5.7cm) LA (2D) 3.4 (1.9-4.0cm) Aortic Root 3.3 (2.0- 3.7cm) LVDs 2.6 (2.5-4.0cm) LA (MM) (1.9-4.0cm) Aortic Cusp Exc 1.9 (1.5- 2.0cm) EF (%) 60.0 (55-70%) Rt. Atrium 3.8 (1.9-4.0cm) Asc. Aorta cm IVSd 0.8 (0.7-1.1cm) RV (D) (1.8-2.4cm) PWd 0.7 (0.7-1.1cm) Mitral Valve Mitral Mitral Stenosis E wave 0.60m/s MV Mean GR. mmHg A wave 0.90m/s MV Peak GR. mmHg E/A ratio 0.7 2D MVA cm2 Aortic Valve Aortic Valve Aortic Stenosis V1 0.80m/s AO Mean GR. 4mmHg V2 1.30m/s AO Peak GR. 8mmHg LVOT Diameter 2.1 (1.8-2.4cm) Doppler NANI 2.13cm2 Other Information Quality : Technically Limited Rhythm : Technically limited study due to body habitus. Conclusion LV EF IS 65% AND IS NORMAL NORMAL VALVES NORMAL RV FUNCTION NO EFFUSION SIGNED BY: TOMMY SANTAMARIA MD ORDERING PHYSICIAN: PANCHO ORDONEZ DO PROCEDURE(s): HWOCT - HEAD WITHOUT CONTRAST REASON: dizzy ORDER NUMBER(s): [id number], ACCESSION NUMBER(s): [id number] CLINICAL HISTORY: dizzy TECHNIQUE: Helical imaging carried out from skull base to vertex without intravenous contrast. This exam was performed according to our departmental dose optimization program. Up-to-date CT equipment and radiation dose reduction techniques are utilized as appropriate. 49.12 CTDIVol: 49.12 mGy DLP: 787.65 mGy-cm WID: COMPARISON: CT HEAD WITHOUT CONTRAST on DOS: 11/15/24 FINDINGS: Mild cerebral volume loss with concordant prominence of the subarachnoid spaces and ventricles. Moderate patchy low attenuation in the cerebral white matter consistent with nonspecific white matter disease. 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 There is no midline shift or mass effect. The waller white matter interfaces are maintained. The basal cisterns are patent. There is no evidence of acute intracranial hemorrhage or extra-axial fluid collection. The mastoid air cells and visualized paranasal sinuses are well-aerated. Prior ocular lens replacement. IMPRESSION: 1. No acute intracranial abnormality. 2. Mild cerebral volume loss and moderate chronic microvascular ischemic change. 3. 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 Labs Test 11/24/24 01:28 11/23/24 22:35 Range/Units Troponin I High Sensitivity 116 *H </=34 ng/L White Blood Count 6.8 4.4-10.8 10^3/uL Red Blood Count 3.79 L 4.0-5.20 10^6/uL Hemoglobin 11.9 L 12.2-16.2 g/dL Hematocrit 35.1 #L 36.0-46.0 % Mean Corpuscular Volume 92.6 80.0-100.0 fL Mean Corpuscular Hemoglobin 31.4 28.0-32.0 pg Mean Corpuscular Hemoglobin Concent 33.9 32.0-36.0 g/dL Red Cell Distribution Width 13.1 11.8-14.3 % Platelet Count 311 140-450 10^3/uL Mean Platelet Volume 6.7 L 6.9-10.8 fL Neutrophils (%) (Auto) 64.4 37.0-80.0 % Lymphocytes (%) (Auto) 24.6 10.0-50.0 % Monocytes (%) (Auto) 9.8 0.0-12.0 % Eosinophils (%) (Auto) 0.9 0.0-7.0 % Basophils (%) (Auto) 0.3 0.0-2.0 % Neutrophils # (Auto) 4.4 1.6-8.6 10 ^3/uL Lymphocytes # (Auto) 1.7 0.4-5.4 10 ^3/uL Monocytes # (Auto) 0.7 0-1.3 10 ^3/uL Eosinophils # (Auto) 0.1 0-0.8 10 ^3/uL Basophils # (Auto) 0 0-0.2 10 ^3/uL Nucleated Red Blood Cells 0.0 % Sodium Level 137 136-145 mmol/L Potassium Level 3.5 3.5-5.1 mmol/L Chloride Level 101 98-107 mmol/L Carbon Dioxide Level 27 20-31 mmol/L Anion Gap 9 5-15 Blood Urea Nitrogen 16 9-23 mg/dL Creatinine 0.76 0.550-1.02 mg/dL Glomerular Filtration Rate Calc 77 >90 mL/min BUN/Creatinine Ratio 21.1 H 10.0-20.0 Serum Glucose 121 H 74-106 mg/dL Calcium Level 9.0 8.7-10.4 mg/dL Magnesium Level 2.1 1.6-2.6 mg/dL Total Bilirubin 0.6 0.2-1.0 mg/dL Aspartate Amino Transferase (AST) 19 13-40 U/L Alanine Aminotransferase (ALT) 22 7-40 U/L Alkaline Phosphatase 59 46-116 U/L B-Type Natriuretic Peptide 97.70 0-100 pg/mL Total Protein 6.7 5.7-8.2 g/dL Albumin 4.4 3.2-4.8 g/dL Thyroid Stimulating Hormone (TSH) 2.68 0.55-4.78 uIU/mL SEPSIS Sepsis Screen Date sepsis recognized/suspect: Nov 24, 2024 Time Sepsis recognized/suspect: 219 Recent Procedure: No On Antibiotic Therapy: No Respiratory Rate >20: No Heart Rate >90: No Temp<36 C (96.8 F) or >38.3 C: No SBP <90 or MAP <65 mmHG: No New Acute Mental Status Change: No Is the patient on CPAP, BIPAP,: No Physician Orders Electrocardigram (11/23/24 22:26) Clonidine Hcl Tablet (Catapres Tablet) (11/24/24 00:45) Levothyroxine Tablet (Synthroid Tablet) (11/24/24 06:00) Losartan Tablet (Cozaar Tablet) (11/24/24 10:00) Hydrochlorothiazide Tablet (Hydrochlorot (11/24/24 10:00) Nifedipine Er (Procardia Xl (Time-Releas (11/24/24 10:00) Sertraline Hcl (Zoloft) (11/24/24 10:00) Atorvastatin (Lipitor) (11/24/24 22:00) Aspirin Tablet (11/24/24 10:00) Admit (11/24/24 00:41) Ondansetron Hcl (Zofran) (11/24/24 00:45) Enoxaparin Sodium (Lovenox) (11/24/24 10:00) Cardiac Diet-2gna,Lofat,Lochol (11/24/24 Breakfast) Condition: Fair (11/24/24 00:41) Acetaminophen Tablet (Tylenol Tablet) (11/24/24 00:45) Bedrest With Bathroom Privileg (11/24/24 00:41) Nitroglycerin Sublingual (Ntrostat Subli (11/24/24 00:45) Morphine Sulfate Injection (11/24/24 00:45) Stat Ekg For Chest Pain (11/24/24 00:41) Notify Md Of Changes From Base (11/24/24 00:41) Security Systems Sales Representative For 24 Hours (11/24/24 00:41) Emergency Dysrhythmia Protocol (11/24/24 00:41) Rhythm Strips Once Every Shift (11/24/24 00:41) Oxygen By Nasal Cannula (11/24/24 00:41) Urinalysis (11/24/24 00:41) Hydralazine Injection (Apresoline Inject (11/24/24 05:15) Vital Signs Date Time Temp Pulse Resp B/P (MAP) Pulse Ox O2 Delivery O2 Flow Rate FiO2 11/24/24 03:09 98.0 58 18 217/73 (121) 99 98.0 11/24/24 02:55 58 16 98 Room Air* 0 21 11/24/24 02:55 98.0 58 217/73 (121) 98 98.0 11/24/24 02:16 68 16 98 Room Air* 0 21 11/24/24 02:15 215/89 11/24/24 02:15 215/89 11/24/24 02:00 97.7 56 16 215/89 (131) 96 97.7 11/23/24 22:19 99.3 68 14 177/88 99 99.3 Laboratory Tests Test 11/23/24 22:35 White Blood Count 6.8 10^3/uL (4.4-10.8) Medications Medications Dose Ordered Sig/Ibrahima Route Start Time Stop Time Status Last Admin Dose Admin Aspirin 162 mg ONCE ONCE PO 11/24/24 00:15 11/24/24 00:16 DC 11/24/24 02:15 162 MG Clonidine HCl 0.1 mg Q6HP PRN PO 11/24/24 00:45 11/24/24 02:15 0.1 MG Lisinopril 10 mg ONCE ONCE PO 11/23/24 22:30 11/23/24 22:31 DC 11/24/24 02:15 10 MG Assessment/Plan Assessment/Plan Assessment Hypertensive crisis Elevated troponin, demand ischemia Thyroid Plan Admit the patient to telemetry to the hospitalist Antihypertensives as needed Resume home medications Continue treatment per orders. Plan discussed with: Patient My Orders Orders - RODRICK NOBLE AGACNP Procedure Category Date Status Time Clonidine Hcl Tablet [facility]A 11/24/24 In Process (Catapres Tablet) 00:45 Levothyroxine Tablet PHA 11/24/24 In Process (Synthroid Tablet) 06:00 Losartan Tablet PHA 11/24/24 In Process (Cozaar Tablet) 10:00 Hydrochlorothiazide PHA 11/24/24 In Process Tablet (Hydrochlorot 10:00 Nifedipine Er PHA 11/24/24 In Process (Procardia Xl 10:00 Sertraline Hcl PHA 11/24/24 In Process (Zoloft) 10:00 Atorvastatin (Lipitor) PHA 11/24/24 In Process 22:00 Aspirin Tablet [facility] 11/24/24 In Process 10:00 Admit ADMIT 11/24/24 Transmitted 00:41 Ondansetron Hcl [facility] 11/24/24 In Process (Zofran) 00:45 Enoxaparin Sodium [facility] 11/24/24 In Process (Lovenox) 10:00 Cardiac DIET 11/24/24 Transmitted Diet-2gna,Lofat,Lochol Breakfast Condition: Fair [facility] 11/24/24 In Process 00:41 Acetaminophen Tablet [facility] 11/24/24 In Process (Tylenol Tablet) 00:45 Bedrest With Bathroom [facility] 11/24/24 In Process Privileg 00:41 Nitroglycerin [facility] 11/24/24 In Process Sublingual (Ntrostat 00:45 Morphine Sulfate [facility] 11/24/24 In Process Injection 00:45 Stat Ekg For Chest [facility] 11/24/24 In Process Pain 00:41 Notify Md Of Changes [facility] 11/24/24 In Process From Base 00:41 Security Systems Sales Representative For [facility] 11/24/24 In Process 24 Hours 00:41 Emergency Dysrhythmia [facility] 11/24/24 In Process Protocol 00:41 Rhythm Strips Once [facility] 11/24/24 In Process Every Shift 00:41 Oxygen By Nasal RT 11/24/24 Transmitted Cannula 00:41 Urinalysis LAB 11/24/24 Logged 00:41 Hydralazine Injection [facility] 11/24/24 Verified (Apresoline Inject 05:15 Date of Service: Nov 24, 2024 Billing Provider: RODRICK NOBLE Common Visit Codes: [id number] INP/OBS CARE (HIGH) RODRICK NOBLE Nov 24, 2024 05:14
[2024-11-24] MEDS ORDERED: hydrALAZINE HCL 20 MG/ML VL IV PRN (05:15)
[2024-11-24] MEDS: LEVOTHYROXINE SODIUM 25 MCG TAB PO SCH (05:32)
[2024-11-24 07:02] LABS: Urine Protein, UAD Negative (Negative)
[2024-11-24] MEDS: ENOXAPARIN SOD 40 MG/0.4 ML SYRINGE SC SCH (09:52)
[2024-11-24] MEDS: LOSARTAN POTASSIUM 50 MG TAB PO SCH (09:54)
[2024-11-24] MEDS: SERTRALINE HCL 50 MG TAB PO SCH (09:55)
[2024-11-24] MEDS: hydroCHLOROthiazide 25 MG TAB PO SCH (09:55)
--- NOTE | 2024-11-24 10:29 | DVHPN2 ---
Assessment/Plan Assessment/Plan progress note 84 with HTN, HLD, MDD recently admitted for orthostatic dizziness, returned with same plus htn. will do inpatient bp control to avoid polypharmacy and readm ss for home safety, educated on polypharmacy, keeping zoloft and scheduled bp meds physical exam aox4 ctab s1 s2 rrr abdomn soft no le edema labs ekg imaging reviewed assessment and plan HTN Hypothyroidism HLD CKD 2 MDD polypharmacy Chronic back and arthritic pain Vitamin-D deficiency type 2 ND demand ischemia probably CAD BP control, goal SBP <160 DBP <100 No PRN, will manage with oral antihtn only per primary team nifedipine to 90, clorthalidone 25, losartan 100 will hold mirtazipine and trazodone, c/w zoloft pain mgmt tylenol resume asa lipitor diet cardiac dvt ppx lovenox full code Plan discussed with: Patient My Orders Orders - WILLIE MAGALLON MD Procedure Category Date Status Time Orthostatic Vital ORDERS 11/24/24 Transmitted Signs 10:18 Nifedipine Er PHA 11/25/24 Logged (Procardia Xl 10:00 Nifedipine Er PHA 11/24/24 Logged (Procardia Xl 10:30 Discontinue Tele [facility] 11/24/24 Transmitted 10:21 Transfer Orders XFER 11/24/24 Transmitted 10:21 Date of Service: Nov 24, 2024 Billing Provider: WILLIE MAGALLON MD Common Visit Codes: [id number] INP/OBS CARE(HIGH) WILLIE MAGALLON MD Nov 24, 2024 10:29
[2024-11-24] MEDS: ATORVASTATIN 20 MG TAB PO SCH (22:09)
[2024-11-25] VITALS (8 sets, daily range): BP systolic 91–168; BP diastolic 39–85; PULSE 50–57; RESP 12–18; TEMP 96.7–98.2; O2SAT 95–99
[2024-11-25 08:24] LABS: Hematocrit 33.5 % (36.0-46.0); Hemoglobin 11.8 g/dL (12.2-16.2); Mean Corpuscular Hemoglobin 32.0 pg (28.0-32.0); Mean Corpuscular Volume 90.9 fL (80.0-100.0); Nucleated Red Blood Cells % 0.1 %
[2024-11-25 08:31] LABS: Anion Gap 10 (5-15); Calcium 9.0 mg/dL (8.7-10.4); Carbon Dioxide 28 mmol/L (20-31); Chloride 95 mmol/L (98-107); Potassium 3.3 mmol/L (3.5-5.1); Sodium 133 mmol/L (136-145)
[2024-11-25 08:36] LABS: BUN/Creatinine Ratio 19.5 (10.0-20.0); Blood Urea Nitrogen 17 mg/dL (9-23); Glucose 105 mg/dL (74-106)
[2024-11-25] MEDS: POTASSIUM EFFERVESENT TAB 25 MEQ PO ONE (15:15)
[2024-11-26] VITALS (12 sets, daily range): BP systolic 143–191; BP diastolic 67–93; PULSE 43–63; RESP 14–18; TEMP 97.8–98.3; O2SAT 95–98
--- NOTE | 2024-11-26 09:30 | DVHINCON2 ---
Date Seen: Nov 26, 2024 Referring Physician MD Clinton Reason for Consultation Bradycardia with dizziness History of Present Illness This is a pleasant [place]-speaking female who presented to the emergency room with a chief complaint of dizziness. Per patient, she developed intermittent dizziness associated with generalized weakness with records reviewed revealing a recent admission to this facility for similar complaints and discharged home with a diagnosis of dizziness secondary from orthostatic hypotension likely from polypharmacy. At time of assessment, the patient denied any further symptoms. family service worker reviewed revealing a sinus bradycardia rhythm without evidence of sinus pauses or high-degree atrioventricular blocks as low as 39 bpm at rest. A 12 lead electrocardiogram from 11/16/2024 revealed a sinus rhythm with an associated first-degree atrioventricular block. Home medications reviewed revealing no evidence of AV hortencia blocking agents. She takes clonidine hydrochloride 0.1 mg q.8 hours p.r.n. for SBP above 150 or DBP above 90. Significant medical history includes hypertension, dyslipidemia, thyroid disease, and chronic lower back pain. Past Medical History Past medical history reviewed. No other significant than mentioned above. Past Surgical History Hysterectomy Family History: Patient reports no known family medical history. Family History Family history reviewed. Social History Denies the use of illicit drugs, alcohol, or tobacco use. Allergies: Coded Allergies: No Known Drug Allergy (Verified Allergy, Unknown, 03/15/24) Home Meds Active Scripts Clonidine Hydrochloride (Clonidine Hcl) 0.1 Mg Tab, 0.1 MG PO Q8HPRN PRN, #30 TAB for SBP above 150 or DBP above 90 Prov:PAULO BHATTI MD 11/19/24 Reported Medications Oxybutynin Chloride (Oxybutynin Chloride) 5 Mg Tab, 1 TAB PO DAILY for INCONTINENCE for 30 Days, #30 11/25/24 Levothyroxine Sodium (Levothyroxine Sodium) 75 Mcg Tab, 1 TAB PO DAILY for 30 Days, #30 11/25/24 Losartan Potassium & Hydrochlo (Hyzaar) 1 Tab Tab, 1 TAB PO DAILY for 90 Days, #90 [LOSARTAN-HYDROCHLOROTHIAZIDE 100-25 MG] 11/16/24 Nifedipine (Nifedipine Er) 60 Mg Tab, 1 TAB PO DAILY for 90 Days, #90 11/16/24 Cholecalciferol (VITAMIN D3) 2,000 Unit Tab, 1 TAB PO DAILY, #30 TAB 5 Refills 11/16/24 Trazodone Hcl (Trazodone Hcl) 50 Mg Tab, 1 TAB PO HS for 30 Days, #30 11/16/24 Mirtazapine (Remeron) 15 Mg Tab, 1 TAB PO QPM for 90 Days, #90 11/16/24 Sertraline Hcl (Zoloft) 25 Mg Tab, 1 TAB PO DAILY for 60 Days, #60 11/16/24 Rosuvastatin Calcium (Crestor) 10 Mg Tab, 1 TAB PO HS for 100 Days, #100 11/16/24 Tramadol Hcl (Tramadol Hcl) 50 Mg Tab, 1 TAB PO Q12HR PRN for 30 Days, #60 11/16/24 Home Meds Home medications reviewed. Current Medications Current Medications Medications (Trade) Dose Ordered Sig/Ibrahima Route PRN Reason Start Time Stop Time Status Last Admin Nifedipine (Procardia Xl (Time-Release)) 90 mg DAILY PO 11/25/24 10:00 11/25/24 09:00 DC Nifedipine (Procardia Xl (Time-Release)) 60 mg DAILY PO 11/25/24 10:00 11/26/24 08:21 Review of Systems Constitutional: Generalized weakness Ears, Nose, & Throat: No symptom reported Eyes: No symptom reported Neurological: Dizziness Pulmonary/Respiratory: No symptom reported Cardiovascular: No symptom reported Gastrointestinal: No symptom reported Genitourinary: No symptom reported Musculoskeletal: No symptom reported Skin: No symptom reported Psychiatric: No symptom reported Endocrine: No symptom reported Hemotologic/Lymphatic: No symptom reported Vital Signs Vital Signs Date Time Temp Pulse Resp B/P (MAP) Pulse Ox O2 Delivery O2 Flow Rate FiO2 11/26/24 09:00 157/71 (99) 11/26/24 07:44 16 Room Air* 0 21 11/26/24 05:04 98.0 54 96 98.0 Physical Exam General Appearance: Cooperative. Well developed. Thin. In no acute distress Head Exam: Normal inspection Neck Exam: Normal inspection. Non-tender. Normal alignment Pulmonary/Respiratory: Chest non-tender. Clear bilateral breath sounds Cardiovascular/Chest: Regular rate and rhythm. S1, S2. NSR. No murmurs. No JVD. Peripheral Pulses: 2+ Radial (R). 2+ Radial (L). 2+ Pedal (R). 2+ Pedal (L) Abdominal Exam: Normal bowel sounds. Soft. Ankle Exam: Negative ankle edema Lower extremities: Negative lower extremity edema Neuro/Mental Status: A&O x4. Coherent Thoughts/Psych: Normal thought pattern. Appropriate mood and affect Appearance: In no acute distress Skin Exam: Normal inspection. Normal color. Warm. Dry Labs/Diagnostic Data Labs Test 11/25/24 07:51 11/24/24 06:52 11/24/24 01:28 11/23/24 22:35 Range/Units White Blood Count 6.5 4.4-10.8 10^3/uL Red Blood Count 3.69 L 4.0-5.20 10^6/uL Hemoglobin 11.8 L 12.2-16.2 g/dL Hematocrit 33.5 L 36.0-46.0 % Mean Corpuscular Volume 90.9 80.0-100.0 fL Mean Corpuscular Hemoglobin 32.0 28.0-32.0 pg Mean Corpuscular Hemoglobin Concent 35.2 32.0-36.0 g/dL Red Cell Distribution Width 12.8 11.8-14.3 % Platelet Count 285 140-450 10^3/uL Mean Platelet Volume 7.0 6.9-10.8 fL Neutrophils (%) (Auto) 68.3 37.0-80.0 % Lymphocytes (%) (Auto) 21.0 10.0-50.0 % Monocytes (%) (Auto) 8.8 0.0-12.0 % Eosinophils (%) (Auto) 1.3 0.0-7.0 % Basophils (%) (Auto) 0.6 0.0-2.0 % Neutrophils # (Auto) 4.4 1.6-8.6 10 ^3/uL Lymphocytes # (Auto) 1.4 0.4-5.4 10 ^3/uL Monocytes # (Auto) 0.6 0-1.3 10 ^3/uL Eosinophils # (Auto) 0.1 0-0.8 10 ^3/uL Basophils # (Auto) 0 0-0.2 10 ^3/uL Nucleated Red Blood Cells 0.1 % Sodium Level 133 L 136-145 mmol/L Potassium Level 3.3 L 3.5-5.1 mmol/L Chloride Level 95 L 98-107 mmol/L Carbon Dioxide Level 28 20-31 mmol/L Anion Gap 10 5-15 Blood Urea Nitrogen 17 9-23 mg/dL Creatinine 0.87 0.550-1.02 mg/dL Glomerular Filtration Rate Calc 65 >90 mL/min BUN/Creatinine Ratio 19.5 10.0-20.0 Serum Glucose 105 74-106 mg/dL Calcium Level 9.0 8.7-10.4 mg/dL Urine Color Colorless Yellow Urine Clarity Clear Clear Urine pH 7.0 5.0-9.0 Urine Specific [place] 1.010 1.001-1.035 Urine Protein Negative Negative Urine Ketones Negative Negative Urine Blood Negative Negative /uL Urine Nitrite Negative Negative Urine Bilirubin Negative Negative Urine Urobilinogen Normal Negative mg/dL Urine Leukocyte Esterase Negative Negative /uL Urine RBC 1 0 - 4 /hpf Urine Microscopic WBC < 1 0-5 /HPF Urine Squamous Epithelial Cells None seen <5 /hpf Urine Bacteria None seen None Seen /hpf Urine Glucose Normal Normal mg/dL Troponin I High Sensitivity 116 *H </=34 ng/L Magnesium Level 2.1 1.6-2.6 mg/dL Total Bilirubin 0.6 0.2-1.0 mg/dL Aspartate Amino Transferase (AST) 19 13-40 U/L Alanine Aminotransferase (ALT) 22 7-40 U/L Alkaline Phosphatase 59 46-116 U/L B-Type Natriuretic Peptide 97.70 0-100 pg/mL Total Protein 6.7 5.7-8.2 g/dL Albumin 4.4 3.2-4.8 g/dL Thyroid Stimulating Hormone (TSH) 2.68 0.55-4.78 uIU/mL Assessment Dizziness in the setting of hypertensive urgency NSTEMI, likely type 2 secondary to above Sinus bradycardia with PACs Dyslipidemia Hypokalemia Plan/Recommendation (Dr. Edward) A recent transthoracic echocardiogram revealed LVEF 65% with normal valves and normal RV function. The patient underwent a treadmill test for chronotropic response evaluation with a heart rate transitioning from 60s bpm at rest to 110 bpm with exercise. The patient presents with sinus bradycardia with associated PACs at rest. family service worker reviewed with no evidence of cardiac arrhythmias, high-degree atrioventricular blocks, or sinus pauses. Bilateral carotid duplex revealed no evidence of high-degree stenosis. Head CT is negative for acute processes. Dizziness likely secondary to hypertensive urgency. Continue aggressive blood pressure control. Consider discontinuation of clonidine as it is an alpha-agonist which could cause bradycardia. Consider an outpatient event monitor if deemed necessary, nevertheless cardiac arrhythmias are not suspected at this time. Consier a blood pressure log for BP management as outpatient. Kindly call if in need to re-consult or if in need of further recommendations. Thank you for allowing us to participate in this patient's care. Please call if you have any questions or concerns. This medical document was created using an electronic medical record system with voice recognition software and computerized dictation system. Although this document has been carefully reviewed, there might still be some phonetic and typographical errors. Occasional wrong-word or ``sound-alike substitutions may have occurred due to the inherent limitations of voice recognition software. These areas are purely typographical due to imperfections of the software programs and do not reflect any compromise in the patient's medical care. Please read the chart carefully and recognize, using context, where these substitutions have occurred. Plan discussed with: Patient, Other NYHA Physical activity limitations: NA Date of Service: Nov 26, 2024 Billing Provider: TIKA JACKSON Cardiology Common Codes: [id number] INP/OBS CARE (High) TIKA JACKSON Nov 26, 2024 09:30
--- NOTE | 2024-11-26 10:29 | DVHCARD ---
Cardiology Stress Test [place] Treadmill Stress Test [place] Referring MD: ANGELES Jackson Protocol: Mod. katia (without cardiolite) Reason for referral: Other (Treadmill for chronotropic response evaluation only) Target heart Rate:@85%: 114 Percent MPHR: 135 METS: 3.4 Resting Heart rate: 60 Resting Blood Pressure: 191/70 Exercise Heart Rate: 110 Exercise Blood Pressure: 226/80 Reason for Termination of Test: Dizziness Baseline EKG: Sinus rhythm with quadrigeminal PACs Stress EKG: Sinus tachycardia Functional Capacity: Mildly Decreased Heart Rate Response: Adequate Blood Pressure Response: Hypertensive Arrhythmia?: No Cardiolite Injected?: No Comments: Chronotropic response evaluation only Date of Service: Nov 26, 2024 Billing Provider: TIKA JACKSON Cardiology Common Codes: PROCEDURE ONLY Treadmill for Chron Res Eval: [id number], INTERPRETATION, RPT TIKA JACKSON Nov 26, 2024 10:29
[2024-11-26] MEDS ORDERED: HYDR25TA5 PO (13:51)
--- NOTE | 2024-12-01 14:20 | DVHPN2 ---
Assessment/Plan Assessment/Plan progress note 84 with HTN, HLD, MDD recently admitted for orthostatic dizziness, returned with same plus htn. will do inpatient bp control to avoid polypharmacy and readm ss for home safety, educated on polypharmacy, keeping zoloft and scheduled bp meds. cardio consult for chronotropic response physical exam aox4 ctab s1 s2 rrr abdomn soft no le edema labs ekg imaging reviewed assessment and plan HTN Hypothyroidism HLD CKD 2 MDD polypharmacy Chronic back and arthritic pain Vitamin-D deficiency type 2 OR demand ischemia probably CAD BP control, goal SBP <160 DBP <100 No PRN, will manage with oral antihtn only per primary team nifedipine to 90, clorthalidone 25, losartan 100 will hold mirtazipine and trazodone, c/w zoloft pain mgmt tylenol resume asa lipitor diet cardiac dvt ppx lovenox full code Plan discussed with: Patient Date of Service: Nov 25, 2024 Billing Provider: WILLIE MAGALLON MD Common Visit Codes: [id number] INP/OBS CARE(HIGH) WILLIE MAGALLON MD Dec 01, 2024 14:20
--- NOTE | 2024-12-01 14:21 | DVHDS2 ---
Discharge Summary Date of Admission Nov 24, 2024 at 00:41 Date of Discharge: Nov 26, 2024 Labs/Diagnostic Data: Laboratory Results Test 11/25/24 07:51 11/24/24 06:52 11/24/24 01:28 11/23/24 22:35 White Blood Count 6.5 10^3/uL (4.4-10.8) Red Blood Count 3.69 10^6/uL (4.0-5.20) Hemoglobin 11.8 g/dL (12.2-16.2) Hematocrit 33.5 % (36.0-46.0) Mean Corpuscular Volume 90.9 fL (80.0-100.0) Mean Corpuscular Hemoglobin 32.0 pg (28.0-32.0) Mean Corpuscular Hemoglobin Concent 35.2 g/dL (32.0-36.0) Red Cell Distribution Width 12.8 % (11.8-14.3) Platelet Count 285 10^3/uL (140-450) Mean Platelet Volume 7.0 fL (6.9-10.8) Neutrophils (%) (Auto) 68.3 % (37.0-80.0) Lymphocytes (%) (Auto) 21.0 % (10.0-50.0) Monocytes (%) (Auto) 8.8 % (0.0-12.0) Eosinophils (%) (Auto) 1.3 % (0.0-7.0) Basophils (%) (Auto) 0.6 % (0.0-2.0) Neutrophils # (Auto) 4.4 10 ^3/uL (1.6-8.6) Lymphocytes # (Auto) 1.4 10 ^3/uL (0.4-5.4) Monocytes # (Auto) 0.6 10 ^3/uL (0-1.3) Eosinophils # (Auto) 0.1 10 ^3/uL (0-0.8) Basophils # (Auto) 0 10 ^3/uL (0-0.2) Nucleated Red Blood Cells 0.1 % Sodium Level 133 mmol/L (136-145) Potassium Level 3.3 mmol/L (3.5-5.1) Chloride Level 95 mmol/L (98-107) Carbon Dioxide Level 28 mmol/L (20-31) Anion Gap 10 (5-15) Blood Urea Nitrogen 17 mg/dL (9-23) Creatinine 0.87 mg/dL (0.550-1.02) Glomerular Filtration Rate Calc 65 mL/min (>90) BUN/Creatinine Ratio 19.5 (10.0-20.0) Serum Glucose 105 mg/dL (74-106) Calcium Level 9.0 mg/dL (8.7-10.4) Urine Color Colorless (Yellow) Urine Clarity Clear (Clear) Urine pH 7.0 (5.0-9.0) Urine Specific Bradley 1.010 (1.001-1.035) Urine Protein Negative (Negative) Urine Ketones Negative (Negative) Urine Blood Negative /uL (Negative) Urine Nitrite Negative (Negative) Urine Bilirubin Negative (Negative) Urine Urobilinogen Normal mg/dL (Negative) Urine Leukocyte Esterase Negative /uL (Negative) Urine RBC 1 /hpf (0 - 4) Urine Microscopic WBC < 1 /HPF (0-5) Urine Squamous Epithelial Cells None seen /hpf (<5) Urine Bacteria None seen /hpf (None Seen) Urine Glucose Normal mg/dL (Normal) Troponin I High Sensitivity 116 ng/L (</=34) Magnesium Level 2.1 mg/dL (1.6-2.6) Total Bilirubin 0.6 mg/dL (0.2-1.0) Aspartate Amino Transferase (AST) 19 U/L (13-40) Alanine Aminotransferase (ALT) 22 U/L (7-40) Alkaline Phosphatase 59 U/L (46-116) B-Type Natriuretic Peptide 97.70 pg/mL (0-100) Total Protein 6.7 g/dL (5.7-8.2) Albumin 4.4 g/dL (3.2-4.8) Thyroid Stimulating Hormone (TSH) 2.68 uIU/mL (0.55-4.78) Other Laboratory Tests 11/25/24 07:51 Brief Hx & Hospital Course: 84 with HTN, HLD, MDD recently admitted for orthostatic dizziness, returned with same plus htn. will do inpatient bp control to avoid polypharmacy and readm. ss for home safety, educated on polypharmacy, keeping zoloft and scheduled bp meds. chronotropic respnose good. stable to dc. op follow up de clinic Condition at Discharge: Good Final Diagnosis/Problems List HTN Hypothyroidism HLD CKD 2 MDD polypharmacy Chronic back and arthritic pain Vitamin-D deficiency type 2 OH demand ischemia probably CAD Discharge Disposition: Home with Health Services Discharge Instruct/Medications Diet: Consistent carbohydrate, Cardiac 2g Na,low cholest Activity: No Restrictions, As Tolerated Follow Up/Referral: dc clinic tuesday 11/[address] nielsen Medications: stop trazodone, c/w rest of meds Scheduled Cholecalciferol (Vitamin D3), 1 TAB PO DAILY, (Reported) Hctz (Hydrochlorothiazide), 25 MG PO DAILY Levothyroxine Sodium (Levothyroxine Sodium), 1 TAB PO DAILY, (Reported) Losartan Potassium & Hydrochlo (Hyzaar), 1 TAB PO DAILY, (Reported) Mirtazapine (Remeron), 1 TAB PO QPM, (Reported) Nifedipine (Nifedipine Er), 1 TAB PO DAILY, (Reported) Rosuvastatin Calcium (Crestor), 1 TAB PO HS, (Reported) Sertraline Hcl (Zoloft), 1 TAB PO DAILY, (Reported) Discontinued Medications Clonidine Hydrochloride (Clonidine Hcl), 0.1 MG PO Q8HPRN PRN Oxybutynin Chloride (Oxybutynin Chloride), 1 TAB PO DAILY, (Reported) Tramadol Hcl (Tramadol Hcl), 1 TAB PO Q12HR PRN, (Reported) Trazodone Hcl (Trazodone Hcl), 1 TAB PO HS, (Reported) Discharge Statement: "Patient was advised to return to the ER or call 911 if any headaches, dizziness, shortness of breath, chest pain, abdominal pain, bleeding, fevers, or worsening of medical condition. Patient was counseled about treatment plan, medications, possible side effects, patientverbalized understanding. All questions were answered to the best of my ability. This discharge took greater then 30 minutes in planning, reviewing documentation, counseling the patient, and discussing with other team members." ASSESSMENT ASSESSMENT Assessment htn polypharmacy Date of Service: Nov 26, 2024 Billing Provider: WILLIE MAGALLON MD Common Visit Codes: 60296-VOG/OBS DISCH DAY >30min WILLIE MAGALLON MD Dec 01, 2024 14:21
== END 2024-11-26 18:04 | disposition home or self-care (01) | DRG 282 ==
LOC: ER 22:17 → OVERFLOW 11-24 00:41 → TELE-WESTW 11-24 02:55
PROVIDERS: ADMIT Student in an Organized Health Care Education/Training Program; ATTEND Student in an Organized Health Care Education/Training Program
DX: I16.0 Hypertensive urgency (principal); I21.A1 Myocardial infarction type 2; E03.9 Hypothyroidism, unspecified; E78.5 Hyperlipidemia, unspecified; E55.9 Vitamin D deficiency, unspecified; I25.10 Atherosclerotic heart disease of native coronary artery without angina pectoris; N18.2 Chronic kidney disease, stage 2 (mild); F32.9 Major depressive disorder, single episode, unspecified; G89.29 Other chronic pain; I44.0 Atrioventricular block, first degree; E87.6 Hypokalemia; I12.9 Hypertensive chronic kidney disease with stage 1 through stage 4 chronic kidney disease, or unspecified chronic kidney disease; Z90.710 Acquired absence of both cervix and uterus; Z79.899 Other long term (current) drug therapy
CPT/HCPCS: 36415; 80048; 80053; 81001; 83735; 83880; 84443; 84484; 85025; 93017; 99291; G0378